=== PATIENT | male | born 1960 | race Caucasian/White ===

== ENCOUNTER 2017-07-05 21:14 | Inpatient (IN) | payer MEDICARE, OTHER ==
[~2017-07-05] VITALS: Ht 177.8 cm; Wt 95.6 kg
[2017-07-05] VITALS (8 sets, daily range): BP systolic 125–211; BP diastolic 76–116; PULSE 88–120; RESP 20–22; TEMP 98.4; O2SAT 98–100
[2017-07-05] MEDS ORDERED: ROCURONIUM INJ 50 MG/5 ML VIAL IV ONE (21:30)
[2017-07-05] MEDS ORDERED: ETOMIDATE 20 MG/10 ML VIAL IV PUSH ONE (21:30)
[2017-07-05] MEDS: PROPOFOL 1000 MG/100 ML INJ 100 ML IV PRN (21:40)
[2017-07-05 21:44] LABS: AUTOMATED NEUTROPHIL # 12.2 TH/MM3 (1.8-7.7); BASOPHIL # 0.3 TH/MM3 (0-0.2); BASOPHIL % 1.1 % (0.0-2.0); EOSINOPHIL % 8.6 % (0.0-4.0); HEMATOCRIT 47.6 % (39.0-51.0); HEMOGLOBIN 16.5 GM/DL (13.0-17.0); LYMPH % 31.2 % (9.0-44.0); LYMPHOCYTE # 7.2 TH/MM3 (1.0-4.8); MEAN CELL VOLUME 88.1 FL (80.0-100.0); MEAN CORPUSCULAR HEMOGLOBIN 30.5 PG (27.0-34.0); MEAN CORPUSCULAR HGB CONC 34.6 % (32.0-36.0); MEAN PLATELET VOLUME 9.9 FL (7.0-11.0); MONOCYTE # 1.4 TH/MM3 (0-0.9); NEUT % 53.1 % (16.0-70.0); PLATELET COUNT 260 TH/MM3 (150-450); RED BLOOD COUNT 5.41 MIL/MM3 (4.50-5.90); RED CELL DISTRIBUTION WIDTH 14.5 % (11.6-17.2); WHITE BLOOD COUNT 23.1 TH/MM3 (4.0-11.0)
[2017-07-05 21:54] LABS: CALCIUM 8.5 MG/DL (8.5-10.1)
[2017-07-05 21:55] LABS: BICARBONATE 27.2 MEQ/L (21.0-32.0)
[2017-07-05 21:56] LABS: INTERNATIONAL NORMALIZED RATIO 1.1 RATIO; PROTHROMBIN TIME - PATIENT 11.3 SEC (9.8-11.6)
--- NOTE | 2017-07-05 21:56 | PD ---
HPI Chief Complaint: Cardiac arrest Time Seen by Provider: 21:21 Travel History International Travel<30 days: No Contact w/Intl Traveler<30days: No History of Present Illness HPI 56yo M with PMH of CHF, CAD s/p stent was brought in by [facility] in agonal breathing. Pt has been feeling sob for a few hours when [facility] arrived. Said he was in agonal breathing and then lose pulses and was in vfib so was defibrillated once and given 1 dose of epinephrine. Pt has ROSC right away. Pt was brought in with BVM and was opening his eyes but in respiratory distress. Pt emergently intubated in the ED. Pt is able to follow commands and moves all extremities and nods his head to respond. Unable to obtain further history. [facility] Social History Tobacco Use: No Allergies-Medications (Allergen,Severity, Reaction): Coded Allergies: No Allergy Information Available (Unverified , 07/05/17) Unable to obtain due to clinical condition Reported Meds & Prescriptions Reported Meds & Active Scripts Active Reported Sertraline (Sertraline HCl) 100 Mg Tab 100 Mg PO DAILY Calcitriol 0.5 Mcg Cap 0.5 Mcg PO DAILY Magox 400 (Magnesium Oxide) 400 Mg Tablet Clonidine (Clonidine HCl) 0.1 Mg Tab 0.1 Mg PO BID Isosorbide Mononitrate ER (Isosorbide Mononitrate) 60 Mg Tab 60 Mg PO DAILY Fenofibrate 145 Mg Tab 145 Mg PO DAILY Risperidone 2 Mg Tab 2 Mg PO Q12HR Metformin ER (Metformin HCl) 1,000 Mg Mai 1,000 Mg PO DAILY With evening meal Amitriptyline (Amitriptyline HCl) 10 Mg Tab 10 Mg PO HS Divalproex DR (Divalproex Sodium) 500 Mg Tabdr 500 Mg PO BID Lisinopril 20 Mg Tab 20 Mg PO DAILY Aspirin 81 Mg Chew 81 Mg CHEW DAILY Aripiprazole 15 Mg Tab 15 Mg PO DAILY Metoprolol Tartrate 50 Mg Tab 50 Mg PO BID Ibuprofen 800 Mg Tab 800 Mg PO Q8H PRN Xanax (Alprazolam) 1 Mg Tab 1 Mg PO Q8H PRN Review of Systems ROS Limitations: Clinical Condition Physical Exam Narrative GENERAL: 56yo M in severe distress. SKIN: Focused skin assessment warm/dry. HEAD: Atraumatic. Normocephalic. EYES: Pupils equal and round at 3mm bilaterally. ENT: No nasal bleeding or discharge. Mucous membranes pink and moist. NECK: Trachea midline. No JVD. CARDIOVASCULAR: Regular rate and rhythm. No murmur appreciated. RESPIRATORY: +accessory muscle use. Coarse breath sounds bilaterally. GASTROINTESTINAL: Abdomen soft, non-tender, nondistended. MUSCULOSKELETAL: No obvious deformities. No clubbing. No cyanosis. +Bilateral lower ext edema. NEUROLOGICAL: Sedated but initially able to follow commands and open his eyes. Data Data Last Documented VS Vital Signs Date Time Temp Pulse Resp B/P (MAP) Pulse Ox O2 Delivery O2 Flow Rate FiO2 07/05/17:15 99 75 07/05/17 22:15 119 22 172/96 (121) Ventilator 07/05/17 22:00 98.4 Orders Orders Complete Blood Count With Diff (07/05/17 21:21) Basic Metabolic Panel (Bmp) (07/05/17 21:21) Prothrombin Time / Inr (Pt) (07/05/17 21:21) Act Partial Throm Time (Ptt) (07/05/17:) Troponin I (07/05/17 21:21) Chest, Single Ap (07/05/17 ) Ng Gastric Tube Insert/Monitor (07/05/17 21:21) Urinary Catheter Management SOLOMON.Q8H (07/05/17 21:21) Propofol 1000 Mg/100 Ml Inj (Diprivan 10 (07/05/17 21:30) Etomidate Inj (Amidate Inj) (07/05/17 21:30) Rocuronium Inj (Zemuron Inj) (07/05/17 21:30) B-Type Natriuretic Peptide (07/05/17 21:24) Restraints Non-Violent SOLOMON.Q3H (07/05/17 21:30) Electrocardiogram (07/05/17 21:13) Arterial Blood Gas (Abg) (07/05/17 22:00) Furosemide Inj (Lasix Inj) (07/05/17 22:30) Methylprednisolone So Succ Inj (Solumedr (07/05/17 22:30) Albuterol-Ipratropium Neb (Duoneb Neb) (07/05/17 22:30) Nitroglycerin 2% Oint (Nitroglycerin 2% (07/05/17 22:30) Admit Order (Ed Use Only) (07/05/17 22:20) Labs Laboratory Tests Test 07/05/17 21:35 07/05/17 21:55 White Blood Count 23.1 TH/MM3 Red Blood Count 5.41 MIL/MM3 Hemoglobin 16.5 GM/DL Hematocrit 47.6 % Mean Corpuscular Volume 88.1 FL Mean Corpuscular Hemoglobin 30.5 PG Mean Corpuscular Hemoglobin Concent 34.6 % Red Cell Distribution Width 14.5 % Platelet Count 260 TH/MM3 Mean Platelet Volume 9.9 FL Neutrophils (%) (Auto) 53.1 % Lymphocytes (%) (Auto) 31.2 % Monocytes (%) (Auto) 6.0 % Eosinophils (%) (Auto) 8.6 % Basophils (%) (Auto) 1.1 % Neutrophils # (Auto) 12.2 TH/MM3 Lymphocytes # (Auto) 7.2 TH/MM3 Monocytes # (Auto) 1.4 TH/MM3 Eosinophils # (Auto) 2.0 TH/MM3 Basophils # (Auto) 0.3 TH/MM3 CBC Comment AUTO DIFF Differential Total Cells Counted 100 Neutrophils % (Manual) 46 % Band Neutrophils % 3 % Lymphocytes % 35 % Monocytes % 7 % Eosinophils % 9 % Neutrophils # (Manual) 11.3 TH/MM3 Differential Comment FINAL DIFF MANUAL Platelet Estimate NORMAL Platelet Morphology Comment NORMAL Red Cell Morphology Comment NORMAL Prothrombin Time 11.3 SEC Prothromb Time International Ratio 1.1 RATIO Activated Partial Thromboplast Time 28.3 SEC Blood Urea Nitrogen 14 MG/DL Creatinine 1.40 MG/DL Random Glucose 242 MG/DL Calcium Level 8.5 MG/DL Sodium Level 140 MEQ/L Potassium Level 4.0 MEQ/L Chloride Level 101 MEQ/L Carbon Dioxide Level 27.2 MEQ/L Anion Gap 12 MEQ/L Estimat Glomerular Filtration Rate 52 ML/MIN Troponin I 0.03 NG/ML B-Type Natriuretic Peptide 675 PG/ML Blood Gas Puncture Site RT RADIAL Blood Gas Patient Temperature 98.6 Blood Gas HCO3 28 mmol/L Blood Gas Base Excess 1.6 mmol/L Blood Gas Oxygen Saturation 93 % Arterial Blood pH 7.25 Arterial Blood Partial Pressure CO2 67 mmHG Arterial Blood Partial Pressure O2 210 mmHG Arterial Blood Oxygen Content 19.9 Vol % Arterial Blood Carboxyhemoglobin 4.8 % Arterial Blood Methemoglobin 1.3 % Blood Gas Hemoglobin 14.9 G/DL Oxygen Delivery Device VENTILATOR Blood Gas Ventilator Setting AC14/600/5PEEP Blood Gas Inspired Oxygen 100 % MDM Medical Decision Making Medical Screen Exam Complete: Yes Emergency Medical Condition: Yes Interpretation(s) EKG: Sinus tachycardia at 133bpm. LBBB. No prior to compare. Differential Diagnosis MS vs. CHF exacerbation vs. COPD exacerbation vs. pneumonia vs. PE Narrative Course 56yo M in respiratory distress was found to be in vfib arrest. ROSC obtain after 1 defibrillation and epinephrine. Pt is in respiratory distress upon arrival and emergently intubated. Pt is very hypertensive with BP of 211/116. Mildly tachycardic with HR in the low 110s. Pt is following command and currently sedated with propofol. Labs reviewed, leukocytosis at 23.1. Empirically cover with vancomycin and zosyn. BNP elevated at 675. ABG showed respiratory acidosis with PCO2 of 67. RR rate change from 14 to 18. FiO2 decrease from 100% to 75%. Pt with history of CHF, lower extremity edema and coarse breath sounds, will give nitropaste and lasix. CXR showed ET tube in good position. NG in stomach. Mild perihilar airspace disease. Pt's aunt arrived and said they are visiting from [place] and drove down to [place] a week ago. Will do CT angio to r/o PE. Discussed with Dr. Barron and accepted to his service. He wants patient transfer to the [facility]. CT angio showed no PE. Bilateral pulmonary consolidation and effusion with adenopathy. Pt already covered with antibiotics. Critical Care Narrative Aggregate critical care time was 50 minutes. Time to perform other separately billable procedures was not included in the critical care time. My time did not include minutes spent treating any other patients simultaneously or on activities that did not directly contribute to the patient's treatment. The services I provided to this patient were to treat and/or prevent clinically significant deterioration that could result in: Respiratory distress and . I provided critical care services requiring my management, as noted below: Chart data review, documentation time, medication orders and management, vital sign assessments/reviewing monitor data, ordering and reviewing lab tests, ordering and interpreting/reviewing x-rays and diagnostic studies, care of the patient and discussion of the patient with the admitting physicians. Procedures Procedure Narrative The patient was put in optimal position for the procedure. Rapid sequence intubation was initiated by me using 30 milligrams of etomidate IV and 50 milligrams of rocuronium IV. The patient was intubated with a 8.0 cuffed endotracheal tube. Tube placement was confirmed by visualization of the tube and balloon passing through the cords, capnometry and subsequent chest x-ray. Breath sounds were equal and well aerated bilaterally postintubation. No breath sounds over stomach. Patient tolerated procedure well. Diagnosis Primary Impression: Acute respiratory failure Qualified Codes: J96.00 - Acute respiratory failure, unspecified whether with hypoxia or hypercapnia Admitting Information Admitting Physician Requests: it Cecilia Guzman DO Jul 05, 2017 21:56
[2017-07-05 21:58] LABS: CREATININE 1.4 MG/DL (0.60-1.30)
[2017-07-05 22:02] LABS: TROPONIN I 0.03 NG/ML (0.02-0.05)
[2017-07-05 22:10] LABS: BANDS 3 % (0-6); LYMPHOCYTES 35 % (9-44); MONOCYTES 7 % (0-8); NEUTROPHIL # MANUAL DIFF 11.3 TH/MM3 (1.8-7.7); POLYS (SEG NEUTROPHILS) 46 % (16-70)
--- NOTE | 2017-07-05 22:12 | RADRPT ---
EXAM DATE/TIME: 07/05/2017 21:26 [facility] COMPARISON: No previous studies available for comparison. INDICATIONS : Post intubation. MEDICAL HISTORY : Cardiovascular disease. SURGICAL HISTORY : CABG. Pacemaker. ENCOUNTER: Initial ACUITY: 1 day PAIN SCORE: Non-responsive. LOCATION: Bilateral chest FINDINGS: A single view of the chest demonstrates endotracheal tube in good position. NG tip in stomach. Postop median sternotomy. Pacer leads overlie right atrium and right ventricle. Mild perihilar airspace dis ease. No significant effusion. No pneumothorax. CONCLUSION: 1. Endotracheal tube in good position. NG coiled in stomach. Mild perihilar airspace disease. James Parsons MD on July 05, 2017 at 22:08 Board Certified Radiologist. This report was verified electronically.
[2017-07-05] MEDS ORDERED: methylPREDNISolone SOD SUCC 125 MG/2 ML VIAL IV PUSH ONE (22:30)
[2017-07-05] MEDS ORDERED: FUROSEMIDE 40 MG/4 ML VIAL IVP ONE (22:30)
[2017-07-05] MEDS ORDERED: PIPERACIL-TAZO 3.375 GM PREMIX 50 ML IV ONE (22:30)
[2017-07-05] MEDS ORDERED: NITROGLYCERIN 2% OINT 1 GM PACKET TOPICAL ONE (22:30)
[2017-07-05] MEDS ORDERED: VANCOMYCIN INJ 1,600 MG in SODIUM CHLORID 0.9% 500 ML INJ 500 ML IV ONE (22:30)
[2017-07-05] MEDS: RESP: ALBUTEROL 2.5 MG/IPRATROPIUM 0.5 MG NEB (SCH) INH (22:33)
[2017-07-05] MEDS ORDERED: ARIP1TAB13 PO (22:33)
[2017-07-05] MEDS ORDERED: ISOS60TA PO (22:33)
[2017-07-05] MEDS ORDERED: IBUP1TAB7 PO (22:33)
[2017-07-05] MEDS ORDERED: CALC0.5C PO (22:33)
[2017-07-05] MEDS ORDERED: SERT-129 PO (22:33)
[2017-07-05] MEDS ORDERED: XANA1TAB2 PO (22:33)
[2017-07-05] MEDS ORDERED: DIVA500T PO (22:33)
[2017-07-05] MEDS ORDERED: METO50TA PO (22:33)
[2017-07-05] MEDS ORDERED: FENO145T2 PO (22:33)
[2017-07-05] MEDS ORDERED: MAGO400T2 (22:33)
[2017-07-05] MEDS ORDERED: ASPI-516 CHEW (22:33)
[2017-07-05] MEDS ORDERED: METF-382 PO (22:33)
[2017-07-05] MEDS ORDERED: CLON0.1T PO (22:33)
[2017-07-05] MEDS ORDERED: LISI-515 PO (22:33)
[2017-07-05] MEDS ORDERED: AMIT10TA6 PO (22:33)
[2017-07-05] MEDS ORDERED: RISP2TAB2 PO (22:33)
[2017-07-05] MEDS ORDERED: IOHEXOL 350 MG/ML 10 ML VIAL (for RAD DIAG) IVCONTRAST ONE (23:38)
--- NOTE | 2017-07-05 23:45 | RADRPT ---
EXAM DATE/TIME: 07/05/2017 23:15 [facility] COMPARISON: No previous studies available for comparison. INDICATIONS : Evaluate for embolism. Respiratory distress. IV CONTRAST: 75 cc Omnipaque 350 (iohexol) IV RADIATION DOSE: 21.42 CTDIvol (mGy) MEDICAL HISTORY : Congestive hearrt failure. Chronic obstructive pulmonary disease. SURGICAL HISTORY : CABG ENCOUNTER: Initial ACUITY: 1 day PAIN SCALE: Non-responsive LOCATION: chest TECHNIQUE: Volumetric scanning of the chest was performed using a pulmonary embolism protocol MIP images were re constructed. Using automated exposure control and adjustment of the mA and/or kV according to patien t size, radiation dose was kept as low as reasonably achievable to obtain optimal diagnostic quality images. DICOM format image data is available electronically for review and comparison. Follow-up recommendations for detected pulmonary nodules are based at a minimum on nodule size and pa tient risk factors according to Fleischner Society Guidelines. FINDINGS: There is dense consolidation in the lower lobes with moderate bilateral pleural effusions. There is a lso consolidation in the upper lobes posteriorly along the oblique fissure. Endotracheal tube and ent michelle tubes are identified. A cyst is suspected at the midpole of the left kidney and there is diverti culosis of the transverse colon. The patient has had previous CABG. 111 cm right paratracheal lymph n ode, 9.2 mm short axis prevascular node, subcarinal adenopathy up to 2.7 cm in short axis dimension, and bilateral hilar adenopathy up to 2.1 cm on the right, and 1.3 cm on the left. No obvious pulmonar y emboli. Degenerative changes of the spine are noted. CONCLUSION: 1. No evidence for pulmonary embolism. 2. Bilateral pulmonary consolidation and effusions with adenopathy. 3. Diverticulosis. 4. Left renal cyst. Jai Rosales MD on July 05, 2017 at 23:40 Board Certified Radiologist. This report was verified electronically.
[2017-07-06] VITALS (14 sets, daily range): BP systolic 118–188; BP diastolic 71–103; PULSE 74–111; RESP 16–22; TEMP 97.6–99.1; O2SAT 92–100
[2017-07-06] MEDS: SODIUM CHLOR 0.9% 1000 ML INJ 1,000 ML IV SCH ×3 (01:11→22:53)
[2017-07-06] MEDS: PROPOFOL 1000 MG/100 ML INJ 100 ML IV PRN (01:13)
[2017-07-06] MEDS ORDERED: SENNOSIDES 8.6 MG TAB PO PRN (01:15)
[2017-07-06] MEDS ORDERED: SODIUM CHLORIDE 0.9% FLUSH 10 ML FLUSH IV FLUSH PRN (01:15)
[2017-07-06] MEDS ORDERED: Vancomycin Consult Pharmacy 1 EA OTHER SCH (01:15)
[2017-07-06] MEDS ORDERED: ACETAMINOPHEN 325 MG TAB PO PRN (01:15)
[2017-07-06] MEDS ORDERED: BISACODYL 10 MG SUPP RECTAL PRN (01:15)
[2017-07-06] MEDS ORDERED: LACTULOSE SYRUP 20 GM/30 ML CUP PO PRN (01:15)
[2017-07-06] MEDS ORDERED: MIDAZOLAM HCL 2 MG/2 ML VIAL IV PUSH PRN (01:15)
[2017-07-06] MEDS ORDERED: PROPOFOL 1000 MG/100 ML INJ 100 ML IV PRN (01:15)
[2017-07-06] MEDS ORDERED: MISCELLANEOUS NURSING INFORMATION XX SCH (01:15)
[2017-07-06] MEDS ORDERED: RESP: ALBUTEROL 2.5 MG/IPRATROPIUM 0.5 MG NEB (PRN) INH (01:15)
[2017-07-06] MEDS ORDERED: MAGNESIUM HYDROXIDE SUSP 30 ML CUP PO PRN (01:15)
[2017-07-06] MEDS ORDERED: CHLORHEXIDINE GLUCONATE 2 % 1 PACK (2 CLOTHS) TOP PRN (01:15)
[2017-07-06] MEDS ORDERED: DEXTROSE 50% IN WATER 50 ML VIAL(D50) IV PUSH PRN (01:30)
[2017-07-06] MEDS ORDERED: GLUCAGON 1 MG/ML VIAL OTHER PRN (01:30)
[2017-07-06] MEDS: CHLORHEXIDINE GLUCONATE 2 % 1 PACK (2 CLOTHS) TOP SCH (02:24)
[2017-07-06 02:46] LABS: AUTOMATED NEUTROPHIL # 12.8 TH/MM3 (1.8-7.7); BASOPHIL # 0.1 TH/MM3 (0-0.2); BASOPHIL % 0.4 % (0.0-2.0); EOSINOPHIL % 0.3 % (0.0-4.0); HEMATOCRIT 41.3 % (39.0-51.0); HEMOGLOBIN 14.1 GM/DL (13.0-17.0); LYMPH % 3.5 % (9.0-44.0); LYMPHOCYTE # 0.5 TH/MM3 (1.0-4.8); MEAN CELL VOLUME 87.1 FL (80.0-100.0); MEAN CORPUSCULAR HEMOGLOBIN 29.8 PG (27.0-34.0); MEAN CORPUSCULAR HGB CONC 34.2 % (32.0-36.0); MEAN PLATELET VOLUME 10.3 FL (7.0-11.0); MONO % 2.8 % (0.0-8.0); MONOCYTE # 0.4 TH/MM3 (0-0.9); PLATELET COUNT 213 TH/MM3 (150-450); RED BLOOD COUNT 4.74 MIL/MM3 (4.50-5.90); RED CELL DISTRIBUTION WIDTH 14.7 % (11.6-17.2); WHITE BLOOD COUNT 13.8 TH/MM3 (4.0-11.0)
[2017-07-06] MEDS: AZITHROMYCIN INJ 500 MG in SODIUM CHLOR 0.9% 250 ML INJ 250 ML IV SCH (02:51)
[2017-07-06 02:53] LABS: ALBUMIN 3.2 GM/DL (3.4-5.0); ALT (GPT) 21 U/L (12-78); AST (GOT) 32 U/L (15-37); BICARBONATE 28.6 MEQ/L (21.0-32.0); BLOOD UREA NITROGEN 16 MG/DL (7-18); CALCIUM 8.2 MG/DL (8.5-10.1); CHLORIDE 104 MEQ/L (98-107); CREATININE 1.09 MG/DL (0.60-1.30); GLOMERULAR FILTRATION RATE 70 ML/MIN (>89); GLUCOSE,RANDOM 262 MG/DL (74-106); SODIUM (NA) 139 MEQ/L (136-145)
[2017-07-06 02:56] LABS: ALKALINE PHOSPHATASE 55 U/L (45-117); TOTAL BILIRUBIN ADULT 0.4 MG/DL (0.2-1.0); TOTAL PROTEIN 7.3 GM/DL (6.4-8.2); TROPONIN I 0.57 NG/ML (0.02-0.05)
[2017-07-06] MEDS: RESP: ALBUTEROL 2.5 MG/IPRATROPIUM 0.5 MG NEB (SCH) INH ×4 (04:38→20:39)
[2017-07-06] MEDS ORDERED: HEPARIN SODIUM - IV 10,000 UNITS/10 ML VIAL IV PUSH ONE (05:00)
[2017-07-06] MEDS: PIPERACIL-TAZO 4.5 GM PREMIX 100 ML IV SCH ×4 (05:00→22:52)
--- NOTE | 2017-07-06 05:00 | HHI.HP ---
HPI Service Critical Care Medicine Primary Care Physician No Primary Care Physician Admission Diagnosis Post cardiac arrest Diagnosis: Travel History International Travel<30 Days: No Contact w/Intl Traveler <30 Da: No Traveled to Known Affected Are: No History of Present Illness 56-year-old gentleman from [place] with past medical history of coronary artery disease status post stent placement 2 weeks ago, CHF with EF per family 25%, diabetes mellitus, seizure disorder, depressions, diabetes mellitus was brought in by [facility] in agonal breathing. The patient has been feeling short of breath a few hours prior to event. Per chart documentation when the emergency response arrived they found the patient in agonal breathing and then lost pulses. The rhythm was found to be ventricular fibrillation and he was defibrillated once and given 1 dose of epinephrine. Patient had ROSC right away. He was brought to emergency department at [place], was opening his eyes but in respiratory distress. He was emergently intubated by ED attending for an airway protection. Off sedation he is is able to follow commands and moves all extremities and nods his head to respond. Review of Systems ROS Unable to obtain patient sedated and intubated Past Family Social History Allergies: Coded Allergies: No Allergy Information Available (Unverified , 07/05/17) Unable to obtain due to clinical condition Past Medical History Coronary artery disease status post stent placement 2 weeks ago CHF - EF 25% and AICD in place Diabetes mellitus Seizure disorder Dyslipidemia Depressions Past Surgical History Coronary angiography with stent placement 2 weeks ago AICD placement Reported Medications Reported Meds & Active Scripts Active Reported Sertraline (Sertraline HCl) 100 Mg Tab 100 Mg PO DAILY Calcitriol 0.5 Mcg Cap 0.5 Mcg PO DAILY Magox 400 (Magnesium Oxide) 400 Mg Tablet Clonidine (Clonidine HCl) 0.1 Mg Tab 0.1 Mg PO BID Isosorbide Mononitrate ER (Isosorbide Mononitrate) 60 Mg Tab 60 Mg PO DAILY Fenofibrate 145 Mg Tab 145 Mg PO DAILY Risperidone 2 Mg Tab 2 Mg PO Q12HR Metformin ER (Metformin HCl) 1,000 Mg Mai 1,000 Mg PO DAILY With evening meal Amitriptyline (Amitriptyline HCl) 10 Mg Tab 10 Mg PO HS Divalproex DR (Divalproex Sodium) 500 Mg Tabdr 500 Mg PO BID Lisinopril 20 Mg Tab 20 Mg PO DAILY Aspirin 81 Mg Chew 81 Mg CHEW DAILY Aripiprazole 15 Mg Tab 15 Mg PO DAILY Metoprolol Tartrate 50 Mg Tab 50 Mg PO BID Ibuprofen 800 Mg Tab 800 Mg PO Q8H PRN Xanax (Alprazolam) 1 Mg Tab 1 Mg PO Q8H PRN Active Ordered Medications Current Medications Medications (Trade) Dose Ordered Sig/Son Route PRN Reason Start Time Stop Time Status Last Admin Dose Admin Sodium Chloride 1,000 ml @ 84 mls/hr [id number] IV 07/06/17 01:11 07/06/17 01:11 Sodium Chloride (NS Flush) 2 ml UNSCH PRN IV FLUSH FLUSH AFTER USING IV ACCESS 07/06/17 01:15 Sodium Chloride (NS Flush) 2 ml BID IV FLUSH 07/06/17 09:00 Acetaminophen (Tylenol) 650 mg Q6H PRN PO PAIN 1-5 AND/OR FEVER >101F 07/06/17 01:15 Morphine Sulfate (Morphine Inj) 2 mg Q2H PRN IV PUSH PAIN SCALE 6 TO 10 07/06/17 01:15 Famotidine (Pepcid Inj) 20 mg Q12HR IV PUSH 07/06/17 09:00 Midazolam HCl (Versed Inj) 2 mg Q1H PRN IV PUSH SEDATION 07/06/17 01:15 Artificial Tears (Tears Naturale Opth Soln) 1 drop TID EACH EYE 07/06/17 09:00 Ondansetron HCl (Zofran Inj) 4 mg Q6H PRN IV PUSH NAUSEA OR VOMITING 07/06/17 01:15 Albuterol/ Ipratropium (Duoneb Neb) 1 ampule Q6HR NEB INH 07/06/17 04:00 07/06/17 04:38 Albuterol/ Ipratropium (Duoneb Neb) 1 ampule Q2HR NEB PRN INH WHEEZING 07/06/17 01:15 Heparin Sodium (Porcine) (Heparin Inj) 5,000 units Q8H SQ 07/06/17 06:00 Miscellaneous Information 1 [id number] XX 07/06/17 01:15 07/06/17 01:15 Chlorhexidine Gluconate (Chlorhexidine 2% Cloth) 3 pack Taper DAILY@04 TOP 07/06/17 04:00 07/02/18 03:59 07/06/17 02:24 Chlorhexidine Gluconate (Chlorhexidine 2% Cloth) 3 pack UNSCH PRN TOP HYGIENIC CARE 07/06/17 01:15 Senna/Docusate Sodium (Tiffany-Colace) 1 tab BID PO 07/06/17 09:00 Magnesium Hydroxide (Milk Of Magnesia Liq) 30 ml Q12H PRN PO Mild constipation 07/06/17 01:15 Sennosides (Senokot) 17.2 mg Q12H PRN PO Moderate constipation 07/06/17 01:15 Bisacodyl (Dulcolax Supp) 10 mg DAILY PRN RECTAL SEVERE CONSITIPATION 07/06/17 01:15 Lactulose (Lactulose Liq) 30 ml DAILY PRN PO SEVERE CONSITIPATION 07/06/17 01:15 Chlorhexidine Gluconate (Peridex 0.12% Liq) 15 ml BID@08,20 MT 07/06/17 08:00 Propofol 100 ml @ 2.799 mls/ hr TITRATE PRN IV SEDATION 07/06/17 01:15 Piperacillin Sod/ Tazobactam Sod 100 ml @ 200 mls/hr Q6H IV 07/06/17 05:00 Azithromycin 500 mg/Sodium Chloride 250 ml @ 250 mls/hr Q24H IV 07/06/17 01:15 07/06/17 02:51 Pharmacy Profile Note 0 ml @ 0 mls/hr UNSCH OTHER 07/06/17 01:15 Methylprednisolone Sodium Succinate (SoluMEDROL INJ) 40 mg Q12H IV PUSH 07/06/17 10:00 Dextrose (D50w (Vial) Inj) 50 ml UNSCH PRN IV PUSH HYPOGLYCEMIA-SEE COMMENTS 07/06/17 01:30 Glucagon (Glucagon Inj) 1 mg UNSCH PRN OTHER HYPOGLYCEMIA-SEE COMMENTS 07/06/17 01:30 Insulin Aspart (NovoLOG SUPPLEMENTAL SCALE) 1 ACHS SLIDING SCALE SQ 07/06/17 08:00 Family History Unable to obtain Social History Unable to obtain Physical Exam Vital Signs Vital Signs Date Time Temp Pulse Resp B/P (MAP) Pulse Ox O2 Delivery O2 Flow Rate FiO2 07/06/17 04:30 98 50 07/06/17 01:29 75 07/06/17 01:28 07/06/17 00:56 97.6 84 18 156/71 (99) 100 07/05/17 23:45 88 20 132/78 (96) 98 Ventilator 07/05/17 23:40 99 75 07/05/17 23:05 100 100 07/05/17 23:00 98 20 125/76 (92) 98 Ventilator 07/05/17 22:30 112 20 172/88 (116) 99 Ventilator 07/05/17 22:15 99 75 07/05/17 22:15 119 22 172/96 (121) Ventilator 07/05/17 22:00 98.4 120 20 211/116 (147) 99 Ventilator 07/05/17 21:25 100 100 Physical Exam GENERAL: Well-nourished, well-developed patient, sedated and intubated. SKIN: Warm and dry. HEAD: Normocephalic. EYES: No scleral icterus. No injection or drainage. NECK: Supple, trachea midline. No JVD or lymphadenopathy. CARDIOVASCULAR: Regular rate and rhythm without murmurs, gallops, or rubs. RESPIRATORY: Breath sounds equal bilaterally. No accessory muscle use. GASTROINTESTINAL: Abdomen soft, non-tender, nondistended. MUSCULOSKELETAL: No cyanosis, or edema. BACK: Nontender without obvious deformity. NEURO EXAM: Mental Status: The patient is sedated and intubated, follows commands off sedation in all 4 extremities Laboratory Laboratory Tests Test 07/05/17 21:35 07/05/17 21:55 07/06/17 01:00 07/06/17 01:49 White Blood Count 23.1 Red Blood Count 5.41 Hemoglobin 16.5 Hematocrit 47.6 Mean Corpuscular Volume 88.1 Mean Corpuscular Hemoglobin 30.5 Mean Corpuscular Hemoglobin Concent 34.6 Red Cell Distribution Width 14.5 Platelet Count 260 Mean Platelet Volume 9.9 Neutrophils (%) (Auto) 53.1 Lymphocytes (%) (Auto) 31.2 Monocytes (%) (Auto) 6.0 Eosinophils (%) (Auto) 8.6 Basophils (%) (Auto) 1.1 Neutrophils # (Auto) 12.2 Lymphocytes # (Auto) 7.2 Monocytes # (Auto) 1.4 Eosinophils # (Auto) 2.0 Basophils # (Auto) 0.3 CBC Comment AUTO DIFF Differential Total Cells Counted 100 Neutrophils % (Manual) 46 Band Neutrophils % 3 Lymphocytes % 35 Monocytes % 7 Eosinophils % 9 Neutrophils # (Manual) 11.3 Differential Comment FINAL DIFF MANUAL Platelet Estimate NORMAL Platelet Morphology Comment NORMAL Red Cell Morphology Comment NORMAL Prothrombin Time 11.3 Prothromb Time International Ratio 1.1 Activated Partial Thromboplast Time 28.3 Blood Urea Nitrogen 14 Creatinine 1.40 Random Glucose 242 Calcium Level 8.5 Sodium Level 140 Potassium Level 4.0 Chloride Level 101 Carbon Dioxide Level 27.2 Anion Gap 12 Estimat Glomerular Filtration Rate 52 Troponin I 0.03 B-Type Natriuretic Peptide 675 Blood Gas Puncture Site RT RADIAL RT RADIAL Blood Gas Patient Temperature 98.6 98.6 Blood Gas HCO3 28 27 Blood Gas Base Excess 1.6 2.4 Blood Gas Oxygen Saturation 93 95 Arterial Blood pH 7.25 7.40 Arterial Blood Partial Pressure CO2 67 44 Arterial Blood Partial Pressure O2 210 129 Arterial Blood Oxygen Content 19.9 18.8 Arterial Blood Carboxyhemoglobin 4.8 2.1 Arterial Blood Methemoglobin 1.3 1.6 Blood Gas Hemoglobin 14.9 13.9 Oxygen Delivery Device VENTILATOR VENT Blood Gas Ventilator Setting AC14/600/5PEEP SEE COMMENT Blood Gas Inspired Oxygen 100 75 Nasal Screen MRSA (PCR) MRSA NOT DETECTED Test 07/06/17 02:29 White Blood Count 13.8 Red Blood Count 4.74 Hemoglobin 14.1 Hematocrit 41.3 Mean Corpuscular Volume 87.1 Mean Corpuscular Hemoglobin 29.8 Mean Corpuscular Hemoglobin Concent 34.2 Red Cell Distribution Width 14.7 Platelet Count 213 Mean Platelet Volume 10.3 Neutrophils (%) (Auto) 93.0 Lymphocytes (%) (Auto) 3.5 Monocytes (%) (Auto) 2.8 Eosinophils (%) (Auto) 0.3 Basophils (%) (Auto) 0.4 Neutrophils # (Auto) 12.8 Lymphocytes # (Auto) 0.5 Monocytes # (Auto) 0.4 Eosinophils # (Auto) 0.0 Basophils # (Auto) 0.1 CBC Comment DIFF FINAL Differential Comment Blood Urea Nitrogen 16 Creatinine 1.09 Random Glucose 262 Total Protein 7.3 Albumin 3.2 Calcium Level 8.2 Alkaline Phosphatase 55 Aspartate Amino Transf (AST/SGOT) 32 Alanine Aminotransferase (ALT/SGPT) 21 Total Bilirubin 0.4 Sodium Level 139 Potassium Level 4.1 Chloride Level 104 Carbon Dioxide Level 28.6 Anion Gap 6 Estimat Glomerular Filtration Rate 70 Lactic Acid Level 1.4 Troponin I 0.57 Date/Time Source Procedure Growth Status 07/05/17 22:43 Blood Peripheral Aerobic Blood Culture Pending Received 07/05/17 22:43 Blood Peripheral Anaerobic Blood Culture Pending Received Result Diagram: 07/06/1722807/06/17228 Septic Shock Reassessment Septic shock perfusion: reassessment completed Caprini VTE Risk Assessment Caprini VTE Risk Assessment: Mod/High Risk (score >= 2) Caprini Risk Assessment Model Point Value = 1 Point Value = 2 Point Value = 3 Point Value = 5 Age 41-60 Minor surgery BMI > 25 kg/m2 Swollen legs Varicose veins or History of unexplained or recurrent spontaneous Oral contraceptives or hormone replacement Sepsis (< 1 month) Serious lung disease, including pneumonia (< 1 month) Abnormal pulmonary function Acute myocardial infarction Congestive heart failure (< 1 month) History of inflammatory bowel disease Medical patient at bed rest Age 61-74 Arthroscopic surgery Major open surgery (> 45 min) Laparoscopic surgery (> 45 min) Malignancy Confined to bed (> 72 hours) Immobilizing plaster cast Central venous access Age >= 75 History of VTE Family history of VTE Factor V Leiden Prothrombin [id number] Lupus anticoagulant Anticardiolipin antibodies Elevated serum homocysteine Heparin-induced thrombocytopenia Other congenital or acquired thrombophilia Stroke (< 1 month) Elective arthroplasty Hip, pelvis, or leg fracture Acute spinal cord injury (< 1 month) Prophylaxis Regimen Total Risk Factor Score Risk Level Prophylaxis Regimen 0-1 Low Early ambulation 2 Moderate Order ONE of the following: *Sequential Compression Device (SCD) *Heparin 5000 units SQ BID 3-4 Higher Order ONE of the following medications: *Heparin 5000 units SQ TID *Enoxaparin/Lovenox 40 mg SQ daily (WT < 150 kg, CrCl > 30 mL/min) *Enoxaparin/Lovenox 30 mg SQ daily (WT < 150 kg, CrCl > 10-29 mL/min) *Enoxaparin/Lovenox 30 mg SQ BID (WT < 150 kg, CrCl > 30 mL/min) AND/OR *Sequential Compression Device (SCD) 5 or more Highest Order ONE of the following medications: *Heparin 5000 units SQ TID (Preferred with Epidurals) *Enoxaparin/Lovenox 40 mg SQ daily (WT < 150 kg, CrCl > 30 mL/min) *Enoxaparin/Lovenox 30 mg SQ daily (WT < 150 kg, CrCl > 10-29 mL/min) *Enoxaparin/Lovenox 30 mg SQ BID (WT < 150 kg, CrCl > 30 mL/min) AND *Sequential Compression Device (SCD) Assessment and Plan Assessment and Plan Respiratory failure - Status post V. fib arrest - Intubated for airway protection - CTA negative for PE - Bilateral infiltrates - Covered with broad-spectrum antibiotics - Follow-up cultures - DuoNeb scheduled and when necessary - Vent bundle - SBT daily V. fib arrest - Off sedation following commands not a candidate for hypothermia - Per family report EF 25% - Repeat 2-D echo - Interrogate AICD - Heparin drip - Continue beta lee - Aspirin - Statins - Cardiology consultation Seizure disorder - Depakote Diabetes mellitus - Insulin sliding scale Depressions - Amitriptyline - Sertraline DVT GI prophylaxis - Teds SCDs - Heparin drip - Pepcid Critical Care: The total critical care time was 35 minutes. Time to perform other separately billable procedures was not included in the critical care time. Domenic Barron MD Jul 06, 2017 5:00 am
[2017-07-06] MEDS ORDERED: MAGNESIUM SULFATE INJ 2 GM in SODIUM CHLORIDE 0.9% INJ 96 ML IV PRN (05:15)
[2017-07-06] MEDS ORDERED: SODIUM PHOSPHATE INJ 30 MMOL in SODIUM CHLOR 0.9% 250 ML INJ 240 ML IV PRN (05:15)
[2017-07-06] MEDS ORDERED: MAGNESIUM SULFATE INJ 4 GM in SODIUM CHLORIDE 0.9% INJ 92 ML IV PRN (05:15)
[2017-07-06] MEDS ORDERED: POTASSIUM PHOSPHATE MONOBASIC 500 MG TAB PO PRN (05:15)
[2017-07-06] MEDS ORDERED: POTASSIUM CHLOR 40 MEQ PREMIX 100 ML IV PRN ×2 (05:15)
[2017-07-06] MEDS ORDERED: POTASSIUM CHLOR 20 MEQ PREMIX 100 ML IV PRN ×2 (05:15)
[2017-07-06] MEDS ORDERED: POTASSIUM CHLORIDE 25 MEQ EFFERVESCENT TAB PO PRN (05:15)
[2017-07-06] MEDS ORDERED: POTASSIUM PHOSPHATE MONOBASIC 500 MG TAB PO/TUBE PRN (05:15)
[2017-07-06] MEDS ORDERED: POTASSIUM PHOSPHATE INJ 30 MMOL in SODIUM CHLOR 0.9% 250 ML INJ 250 ML IV PRN (05:15)
[2017-07-06] MEDS ORDERED: MAGNESIUM OXIDE 400 MG TAB PO PRN (05:15)
[2017-07-06] MEDS: HEPARIN-D5W 25,000 U/250 ML 250 ML IV PRN (05:26)
[2017-07-06] MEDS ORDERED: HEPARIN SODIUM - SQ 10,000 UNITS/ML VIAL SQ SCH (06:00)
[2017-07-06 06:41] LABS: HEMATOCRIT 41.8 % (39.0-51.0); HEMOGLOBIN 13.9 GM/DL (13.0-17.0); MEAN CELL VOLUME 87.7 FL (80.0-100.0); MEAN CORPUSCULAR HEMOGLOBIN 29.2 PG (27.0-34.0); MEAN CORPUSCULAR HGB CONC 33.3 % (32.0-36.0); MEAN PLATELET VOLUME 10.9 FL (7.0-11.0); PLATELET COUNT 212 TH/MM3 (150-450); RED BLOOD COUNT 4.77 MIL/MM3 (4.50-5.90); RED CELL DISTRIBUTION WIDTH 14.9 % (11.6-17.2); WHITE BLOOD COUNT 12.1 TH/MM3 (4.0-11.0)
[2017-07-06] MEDS ORDERED: TICAGRELOR 90 MG TAB PO ONE (06:45)
[2017-07-06 07:06] LABS: INTERNATIONAL NORMALIZED RATIO 1.2 RATIO; PROTHROMBIN TIME - PATIENT 12.6 SEC (9.8-11.6)
[2017-07-06] MEDS: CHLORHEXIDINE 0.12% (ORAL KIT) 15 ML CUP MT SCH ×2 (08:00→20:00)
[2017-07-06] MEDS: ISOSORBIDE MONONITRATE 60 MG CR TAB (IMDUR) PO SCH ×2 (09:00→11:30)
[2017-07-06] MEDS: ARTIFICIAL TEARS OPTH SOLN 15 ML BTL EACH EYE SCH ×3 (09:00→18:00)
[2017-07-06] MEDS: DIVALPROEX DR 500 MG TABEC PO SCH ×2 (09:00→20:11)
[2017-07-06] MEDS: ATORVASTATIN 40 MG TAB PO SCH (09:03)
[2017-07-06] MEDS: SERTRALINE HCL 100 MG TAB PO SCH (09:03)
[2017-07-06] MEDS: DOCUSATE SODIUM 50 MG/SENNA 8.6 MG TAB PO SCH ×2 (09:03→20:12)
[2017-07-06] MEDS: FENOFIBRATE 145 MG TAB PO SCH (09:03)
[2017-07-06] MEDS: INSULIN ASPART SUPPLEMENTAL SCALE SQ SCH ×4 (09:03→21:00)
[2017-07-06] MEDS: methylPREDNISolone SOD SUCC 40 MG/1 ML VIAL IV PUSH SCH ×2 (09:04→20:08)
[2017-07-06] MEDS: METOPROLOL TARTRATE 50 MG TAB PO SCH ×2 (09:04→22:37)
[2017-07-06] MEDS: LISINOPRIL 20 MG TAB PO SCH (09:04)
[2017-07-06] MEDS: risperiDONE 1 MG TAB PO SCH ×3 (09:04→21:00)
[2017-07-06] MEDS: FAMOTIDINE 20 MG/2 ML VIAL IV PUSH SCH ×2 (09:04→20:08)
[2017-07-06] MEDS: ASPIRIN 81 MG CHEW TAB CHEW SCH (09:04)
[2017-07-06] MEDS ORDERED: LABETALOL HCL 100 MG/20 ML VIAL IV PUSH PRN (09:30)
[2017-07-06 09:35] LABS: PHOSPHORUS 3.6 MG/DL (2.5-4.9)
[2017-07-06 09:47] LABS: TROPONIN I 0.74 NG/ML (0.02-0.05)
[2017-07-06] MEDS: SODIUM CHLORIDE 0.9% FLUSH 10 ML FLUSH IV FLUSH SCH ×2 (09:56→20:08)
[2017-07-06] MEDS ORDERED: FUROSEMIDE 40 MG/4 ML VIAL IV PUSH ONE (10:00)
[2017-07-06] MEDS ORDERED: POTASSIUM CHLORIDE 25 MEQ EFFERVESCENT TAB PO ONE (10:00)
--- NOTE | 2017-07-06 10:31 | ECHRPT ---
Indication: CARDIOMYOPATHY CONCLUSIONS Mildly dilated left ventricle. Wall thickness is normal. The left ventricular systolic function is moderately reduced with an estimated ejection fraction of 35%. The basal inferior wall is hpokinetic. Posterior wall is at least moderately hpokinetic. [place] is mildly hypokinetic.A pacemaker wire is noted. Trace mitral valve regurgitation. Aortic valve sclerosis is present. The pulmonary valve is not well visualized. There is a trivial pericardial effusion present. BP: 148 / 97 HR: 74 Rhythm: MEASUREMENTS (Male / Female) Normal Values Technical Quality:Good 2D ECHO LV Diastolic Diameter PLAX 5.7 cm 4.2 - 5.9 / 3.9 - 5.3 cm LV Systolic Diameter PLAX 4.8 cm IVS Diastolic Thickness 1.2 cm 0.6 - 1.0 / 0.6 - 0.9 cm LVPW Diastolic Thickness 0.8 cm 0.6 - 1.0 / 0.6 - 0.9 cm LV Relative Wall Thickness 0.3 LA Systolic Diameter LX 4.0 cm 3.0 - 4.0 / 2.7 - 3.8 cm M-MODE Aortic Root Diameter MM 3.2 cm AV Cusp Separation MM 2.1 cm DOPPLER Mitral E Point Velocity 90.8 cm/s Mitral A Point Velocity 90.8 cm/s Mitral E to A Ratio 1.0 FINDINGS LEFT VENTRICLE Mildly dilated left ventricle. Wall thickness is normal. The left ventricular systolic function is moderately reduced with an estimated ejection fraction of 35%. The basal inferior wall is hpokinetic. Posterior wall is at least moderately hpokinetic. [place] is mildly hypokinetic. RIGHT VENTRICLE A pacemaker wire is noted. Normal right ventricular size and systolic function. LEFT ATRIUM The left atrial size is normal. RIGHT ATRIUM The right atrial size is normal. ATRIAL SEPTUM Normal atrial septal thickness without atrial level shunting by limited color doppler interrogation. AORTA The aortic root and proximal ascending aorta are normal in size on limited imaging. MITRAL VALVE Trace mitral valve regurgitation. AORTIC VALVE Aortic valve sclerosis is present. TRICUSPID VALVE Structurally normal tricuspid valve. No tricuspid valve stenosis or regurgitation. PULMONARY VALVE The pulmonary valve is not well visualized. VESSELS The inferior vena cava is normal in size. PERICARDIUM There is a trivial pericardial effusion present. Jose Roberto MD (Electronically Signed) Final Date:06 July 2017 10:30
[2017-07-06] MEDS ORDERED: HEPARIN SODIUM - IV 10,000 UNITS/10 ML VIAL IV PUSH PRN ×2 (11:00)
[2017-07-06] MEDS: ONDANSETRON HCL 4 MG/2 ML VIAL IV PUSH PRN (11:27)
[2017-07-06] MEDS: MORPHINE SULFATE 4 MG/ML INJ IV PUSH PRN ×6 (11:27→22:38)
[2017-07-06] MEDS: NITROGLYCERIN 2% OINT 1 GM PACKET TOPICAL SCH ×3 (12:00→22:52)
[2017-07-06] MEDS: VANCOMYCIN INJ 1,750 MG in SODIUM CHLORID 0.9% 500 ML INJ 500 ML IV SCH ×2 (12:04→22:53)
--- NOTE | 2017-07-06 12:07 | MB ---
cc: MARILYNN LILLY M.D. DATE OF CONSULTATION 07/06/2017 REASON FOR CONSULTATION Evaluation of heart disease. HISTORY OF PRESENT ILLNESS Sebastián Weiss is a 56-year-old man with a longstanding history of noncompliance. He is a lifelong smoker and smokes both cigarettes and marijuana. He had stents a couple times back in . He ended up with a four-vessel bypass in 2004. He has continued to smoke. He has had eight stents he says since then. The last stent was 4-5 years ago. He was just hospitalized 2 weeks ago he says for similar problems he had this time and the left the hospital AMA. The patient has been out of some of his medications but cannot tell me which ones. He does not carry a list of his medications and I do not know what medications he is on. He has been having shortness of breath which he describes as a moisture feeling in his lungs and saliva getting stuck in his throat. It had been getting particularly worse yesterday and when EMS arrived he apparently had agonal breathing and then had a VF arrest and received CPR, defibrillation and epinephrine. Subsequently he had return of spontaneous circulation. He was intubated but now has been extubated. The patient tells me his last stent was 4-5 years ago. I gave him Brilinta earlier this morning because I heard mention that his stents were more recent than that. He has pain in his chest when he moves or takes a deep breath or touches his chest and I am assuming that is rib fracture from CPR. He does not really have any typical angina and he says he did not have angina prior to this admission. He has a [employer] defibrillator that was placed on December 10, 2005. The battery on that has completely . He does not follow with physicians regularly and he has a history of leaving against medical advice. Denies alcohol abuse but does have a history of smoking as described above. PAST MEDICAL HISTORY 1. Heart disease as described. 2. Type 2 diabetes. 3. Tumors removed from the back of his neck and scalp that he says were benign. 4. Finger surgery. 5. Left leg and left ankle fractures with surgery. 6. Diverticulitis four times. 7. Kidney stones in the past. 8. Bleeding hemorrhoids in the past and currently still has hemorrhoids. SOCIAL HISTORY He is single. He is here on vacation with his aunt. He is from [place]. He smokes as described above. Denies alcohol use. FAMILY HISTORY Strongly positive for premature coronary disease. REVIEW OF SYSTEMS Notable for occasional bleeding from hemorrhoids, but none recently. The remaining review of systems is negative. PHYSICAL EXAMINATION GENERAL: An obese pleasant white male. He does not appear to be in acute distress except when he tries to move. VITAL SIGNS: Charted. HEENT: Unremarkable except for male pattern baldness. NECK: Neck veins are hard to discern. There are no bruits. CHEST: Rales at the bases. CARDIAC: S1, S2, S3, regular rate and rhythm, 1/6 systolic murmur. ABDOMEN: Obese, soft, nontender. EXTREMITIES: Intact pedal pulses with trace edema. EKG EKG shows sinus rhythm with left bundle branch block and PVCs. IMAGING His chest x-ray results are charted. LABORATORY Creatinine is 1.09. Troponin has gone from 0.03 up to 0.74. AST and ALT are normal. Glucose has been elevated. IMPRESSION This is a longstanding noncompliant 56-year-old man with ischemic heart disease status post VF arrest with troponin elevation consistent with possible non-STEMI. He has been in and out of the hospital and usually leaves against medical advice from what we can tell so far. His pacemaker battery is completely . He has continued to smoke despite multiple revascularization procedures. His prognosis is terrible. He is at high risk of recurrent sudden cardiac . PLAN Because he is presently in heart failure I am going to give him Lasix 40 IV b.i.d. with potassium supplementation, monitor his potassium and magnesium levels, tentatively plan to do a cardiac cath on him Tuesday morning at 7:30. He may require revascularization, it is not clear. Prior to discharge he needs to have his pacemaker removed and will likely need a defibrillator for prevention of recurrent sudden cardiac . This has all been explained to the patient. He has been told to quit smoking. Further therapy to be determined. MD NASIR Pierce/ASHLEY /11:18 AM /11:34 AM
[2017-07-06] MEDS: POTASSIUM CHLORIDE 20 MEQ CONTROLLED RELEASE TAB PO SCH ×3 (13:20→20:11)
[2017-07-06] MEDS: ALPRAZolam 1 MG TAB PO PRN (13:32)
[2017-07-06] MEDS: FUROSEMIDE 40 MG/4 ML VIAL IV PUSH SCH (17:54)
[2017-07-06] MEDS ORDERED: EPINEPHrine HCL (1:10,000) 1 MG/10 ML SYRINGE ONE (18:23)
[2017-07-06] MEDS: oxyCODONE/ACETAMINOPHEN 10 MG/325 MG TAB PO PRN (20:09)
[2017-07-06] MEDS: TICAGRELOR 90 MG TAB PO SCH (20:11)
--- NOTE | 2017-07-06 20:38 | EKG ---
Date Performed: 07/06/2017 Time Performed: 07:03:00 PTAGE: 56 years EKG: Sinus rhythm WITH FREQUENT VENTRICULAR PREMATURE COMPLEXES LEFT ATRIAL ENLARGEMENT NONSPECIFIC ST-T ABNORMALITIES ABNORMAL ECG PREVIOUS TRACING : 07/05/2017 21.13 Since the prior tracing, there has been no significant [place] DOCTOR: Nathaniel Garcia Interpretating Date/Time 07/06/2017 20:38:07
[2017-07-06] MEDS ORDERED: AMITRIPTYLINE HCL 10 MG TAB PO SCH (21:00)
[2017-07-06] MEDS ORDERED: QUEtiapine FUMARATE 100 MG TAB PO PRN (21:00)
--- NOTE | 2017-07-06 21:16 | EKG ---
Date Performed: 07/06/2017 Time Performed: 03:08:46 PTAGE: 56 years EKG: Sinus rhythm with PVC(s) LBBB Abnormal ECG PREVIOUS TRACING : 07/05/2017 21.13 Compared to prior tracing, SINUS TACHYCARDIA IS NO LONGER PRESENT DOCTOR: Nathaniel Garcia Interpretating Date/Time 07/06/2017 21:15:18
--- NOTE | 2017-07-06 21:33 | EKG ---
Date Performed: 07/05/2017 Time Performed: 21:13:59 PTAGE: 56 years EKG: SINUS TACHYCARDIA INTRAVENTRICULAR CONDUCTION DELAY ABNORMAL ECG INTERPRETATION BASED ON A DEFAULT AGE OF 40 YEARS NO PREVIOUS TRACING DOCTOR: Nathaniel Garcia Interpretating Date/Time 07/06/2017 21:32:34
[2017-07-07] VITALS (15 sets, daily range): BP systolic 114–155; BP diastolic 78–99; PULSE 74–93; RESP 10–20; TEMP 97.7–98.7; O2SAT 95–98
[2017-07-07] MEDS: RESP: ALBUTEROL 2.5 MG/IPRATROPIUM 0.5 MG NEB (SCH) INH ×4 (03:59→20:17)
[2017-07-07] MEDS: AZITHROMYCIN INJ 500 MG in SODIUM CHLOR 0.9% 250 ML INJ 250 ML IV SCH (04:09)
[2017-07-07] MEDS: MORPHINE SULFATE 4 MG/ML INJ IV PUSH PRN ×7 (04:10→23:08)
[2017-07-07 04:17] LABS: AUTOMATED NEUTROPHIL # 12.9 TH/MM3 (1.8-7.7); BASOPHIL # 0.1 TH/MM3 (0-0.2); BASOPHIL % 0.6 % (0.0-2.0); HEMATOCRIT 37.2 % (39.0-51.0); HEMOGLOBIN 12.5 GM/DL (13.0-17.0); LYMPH % 5.8 % (9.0-44.0); LYMPHOCYTE # 0.8 TH/MM3 (1.0-4.8); MEAN CELL VOLUME 88.1 FL (80.0-100.0); MEAN CORPUSCULAR HEMOGLOBIN 29.5 PG (27.0-34.0); MEAN CORPUSCULAR HGB CONC 33.4 % (32.0-36.0); MEAN PLATELET VOLUME 10.6 FL (7.0-11.0); MONO % 4.1 % (0.0-8.0); MONOCYTE # 0.6 TH/MM3 (0-0.9); NEUT % 89.5 % (16.0-70.0); PLATELET COUNT 185 TH/MM3 (150-450); RED BLOOD COUNT 4.23 MIL/MM3 (4.50-5.90); RED CELL DISTRIBUTION WIDTH 14.8 % (11.6-17.2); WHITE BLOOD COUNT 14.5 TH/MM3 (4.0-11.0)
[2017-07-07 04:23] LABS: INTERNATIONAL NORMALIZED RATIO 1.2 RATIO; PROTHROMBIN TIME - PATIENT 11.7 SEC (9.8-11.6)
[2017-07-07 04:48] LABS: ALBUMIN 2.8 GM/DL (3.4-5.0); AST (GOT) 15 U/L (15-37); BICARBONATE 29.3 MEQ/L (21.0-32.0); BLOOD UREA NITROGEN 18 MG/DL (7-18); CALCIUM 7.7 MG/DL (8.5-10.1); CHLORIDE 102 MEQ/L (98-107); CREATININE 1.08 MG/DL (0.60-1.30); GLOMERULAR FILTRATION RATE 71 ML/MIN (>89); GLUCOSE,RANDOM 251 MG/DL (74-106); MAGNESIUM 1.6 MG/DL (1.5-2.5); SODIUM (NA) 140 MEQ/L (136-145)
[2017-07-07 04:49] LABS: ALT (GPT) 13 U/L (12-78); PHOSPHORUS 3.2 MG/DL (2.5-4.9)
[2017-07-07 04:51] LABS: ALKALINE PHOSPHATASE 43 U/L (45-117); TOTAL BILIRUBIN ADULT 0.3 MG/DL (0.2-1.0); TOTAL PROTEIN 6.4 GM/DL (6.4-8.2)
--- NOTE | 2017-07-07 05:03 | RADRPT ---
EXAM DATE/TIME: 07/07/2017 04:02 [place] COMPARISON: No previous studies available for comparison. INDICATIONS : Shortness of breath, possible pulmonary disease. MEDICAL HISTORY : Congestive heart failure. Chronic obstructive pulmonary disease. SURGICAL HISTORY : CABG. ENCOUNTER: Subsequent ACUITY: 3 days PAIN SCORE: Non-responsive. LOCATION: Bilateral chest FINDINGS: Cardiomegaly and sternotomy wires. Pacer/ICD device again noted. There is patchy left lower lobe airs pace disease. CONCLUSION: Left basilar airspace disease. Jai Rosales MD on July 07, 2017 at 5:01 Board Certified Radiologist. This report was verified electronically.
[2017-07-07] MEDS: NITROGLYCERIN 2% OINT 1 GM PACKET TOPICAL SCH ×4 (06:00→23:08)
[2017-07-07] MEDS: CHLORHEXIDINE GLUCONATE 2 % 1 PACK (2 CLOTHS) TOP SCH (06:57)
[2017-07-07] MEDS: oxyCODONE/ACETAMINOPHEN 10 MG/325 MG TAB PO PRN ×3 (06:57→19:37)
[2017-07-07] MEDS: PIPERACIL-TAZO 4.5 GM PREMIX 100 ML IV SCH ×4 (06:58→23:09)
[2017-07-07] MEDS: CHLORHEXIDINE 0.12% (ORAL KIT) 15 ML CUP MT SCH ×2 (07:54→20:00)
[2017-07-07] MEDS: INSULIN ASPART SUPPLEMENTAL SCALE SQ SCH ×4 (08:00→20:46)
[2017-07-07] MEDS: ARTIFICIAL TEARS OPTH SOLN 15 ML BTL EACH EYE SCH ×3 (09:00→17:11)
[2017-07-07] MEDS ORDERED: SODIUM CHLOR 0.9% 1000 ML INJ 1,000 ML IV SCH (09:32)
--- NOTE | 2017-07-07 09:42 | PD.CARD.PN ---
Subjective Subjective Remarks No angina. SOB better Objective Medications Current Medications Medications (Trade) Dose Ordered Sig/Son Route Start Time Stop Time Status Last Admin Sodium Chloride 1,000 ml @ 84 mls/hr [id number] IV 07/06/17 01:11 07/06/17 13:06 (NS Flush) 2 ml UNSCH PRN IV FLUSH 07/06/17 01:15 (NS Flush) 2 ml BID IV FLUSH 07/06/17 09:00 07/06/17 20:08 (Tylenol) 650 mg Q6H PRN PO 07/06/17 01:15 (Morphine Inj) 2 mg Q2H PRN IV PUSH 07/06/17 01:15 07/07/17 04:10 (Pepcid Inj) 20 mg Q12HR IV PUSH 07/06/17 09:00 07/06/17 20:08 (Versed Inj) 2 mg Q1H PRN IV PUSH 07/06/17 01:15 (Tears Naturale Opth Soln) 1 drop TID EACH EYE 07/06/17 09:00 07/06/17 18:00 (Zofran Inj) 4 mg Q6H PRN IV PUSH 07/06/17 01:15 07/06/17 11:27 (Duoneb Neb) 1 ampule Q6HR NEB INH 07/06/17 04:00 07/07/17 08:18 (Duoneb Neb) 1 ampule Q2HR NEB PRN INH 07/06/17 01:15 Miscellaneous Information 1 Q361D XX 07/06/17 01:15 07/06/17 01:15 (Chlorhexidine 2% Cloth) 3 pack Taper DAILY@04 TOP 07/06/17 04:00 07/02/18 03:59 07/07/17 06:57 (Chlorhexidine 2% Cloth) 3 pack UNSCH PRN TOP 07/06/17 01:15 (Tiffany-Colace) 1 tab BID PO 07/06/17 09:00 07/06/17 09:03 (Milk Of Magnesia Liq) 30 ml Q12H PRN PO 07/06/17 01:15 (Senokot) 17.2 mg Q12H PRN PO 07/06/17 01:15 (Dulcolax Supp) 10 mg DAILY PRN RECTAL 07/06/17 01:15 (Lactulose Liq) 30 ml DAILY PRN PO 07/06/17 01:15 (Peridex 0.12% Liq) 15 ml BID@08,20 MT 07/06/17 08:00 07/06/17 08:00 Piperacillin Sod/ Tazobactam Sod 100 ml @ 200 mls/hr Q6H IV 07/06/17 05:00 07/07/17 06:58 Azithromycin 500 mg/Sodium Chloride 250 ml @ 250 mls/hr Q24H IV 07/06/17 01:15 07/07/17 04:09 Pharmacy Profile Note 0 ml @ 0 mls/hr UNSCH OTHER 07/06/17 01:15 (SoluMEDROL INJ) 40 mg Q12H IV PUSH 07/06/17 10:00 07/06/17 20:08 (D50w (Vial) Inj) 50 ml UNSCH PRN IV PUSH 07/06/17 01:30 (Glucagon Inj) 1 mg UNSCH PRN OTHER 07/06/17 01:30 (NovoLOG SUPPLEMENTAL SCALE) 1 ACHS SLIDING SCALE SQ 07/06/17 08:00 07/06/17 12:03 (Heparin Inj) 5,000 units UNSCH PRN IV PUSH 07/06/17 11:00 (Heparin Inj) 2,500 units UNSCH PRN IV PUSH 07/06/17 11:00 Heparin Sodium/ Dextrose 250 ml @ 10 mls/hr TITRATE PRN IV 07/06/17 05:00 07/06/17 05:26 (Xanax) 1 mg Q8H PRN PO 07/06/17 05:00 07/06/17 13:32 (Elavil) 10 mg HS PO 07/06/17 21:00 07/06/17 20:11 (Aspirin Chew) 81 mg DAILY CHEW 07/06/17 09:00 07/06/17 09:04 (Depakote Dr) 500 mg BID PO 07/06/17 09:00 07/06/17 20:11 (Tricor) 145 mg DAILY PO 07/06/17 09:00 07/06/17 09:03 (Imdur) 60 mg DAILY PO 07/06/17 09:00 07/06/17 11:30 (Prinivil) 20 mg DAILY PO 07/06/17 09:00 07/06/17 09:04 (Lopressor) 50 mg BID PO 07/06/17 09:00 07/06/17 22:37 (Zoloft) 100 mg DAILY PO 07/06/17 09:00 07/06/17 09:03 (Lipitor) 40 mg DAILY PO 07/06/17 09:00 07/06/17 09:03 Potassium Chloride 100 ml @ 50 mls/hr Q2H PRN IV 07/06/17 05:15 Potassium Chloride 100 ml @ 50 mls/hr Q2H PRN IV 07/06/17 05:15 (K-Lyte Cl Eff) 50 meq UNSCH PRN PO 07/06/17 05:15 Potassium Chloride 100 ml @ 25 mls/hr UNSCH PRN IV 07/06/17 05:15 Potassium Chloride 100 ml @ 50 mls/hr Q2H PRN IV 07/06/17 05:15 Magnesium Sulfate 4 gm/Sodium Chloride 100 ml @ 50 mls/hr UNSCH PRN IV 07/06/17 05:15 (Mag-Ox) 800 mg UNSCH PRN PO 07/06/17 05:15 Magnesium Sulfate 2 gm/Sodium Chloride 100 ml @ 50 mls/hr UNSCH PRN IV 07/06/17 05:15 (K-Phos) 2,000 mg Q4H PRN PO 07/06/17 05:15 Sodium Phosphate 30 mmol/Sodium Chloride 250 ml @ 42 mls/hr UNSCH PRN IV 07/06/17 05:15 (K-Phos) 2,000 mg UNSCH PRN PO/TUBE 07/06/17 05:15 Potassium Phosphate 30 mmol/ Sodium Chloride 260 ml @ 42 mls/hr UNSCH PRN IV 07/06/17 05:15 (Brilinta) 90 mg BID PO 07/06/17 21:00 Vancomycin HCl 1750 mg/Sodium Chloride 517.5 ml @ 250 mls/hr Q12H IV 07/06/17 11:00 07/06/17 22:53 Miscellaneous Information SPECIFIC LAB TO BE DRAWN:VANCOMYCIN TROUGH DATE TO... ONCE ONCE .XX 07/07/17 10:45 07/07/17 10:46 (Trandate Inj) 20 mg Q3H PRN IV PUSH 07/06/17 09:30 (Lasix Inj) 40 mg BID@09,18 IV PUSH 07/06/17 18:00 07/06/17 17:54 (KCl) 20 meq QID PO 07/06/17 13:00 07/06/17 20:11 (Nitroglycerin 2% Oint) 1 inch Q6HR TOPICAL 07/06/17 12:00 (Percocet 10-325 Mg) 1 tab Q6H PRN PO 07/06/17 18:30 07/07/17 06:57 (risperDAL) 1 mg HS PO 07/06/17 21:00 (SEROquel) 100 mg HS PRN PO 07/06/17 21:00 07/06/17 22:40 Vital Signs / I&O Vital Signs Date Time Temp Pulse Resp B/P (MAP) Pulse Ox O2 Delivery O2 Flow Rate FiO2 07/07/17 08:19 98 Nasal Cannula 2.00 07/07/17 07:53 16 07/07/17 06:00 86 07/07/17 04:03 95 Nasal Cannula 2.00 07/07/17 04:00 98.2 77 12 143/88 (106) 95 07/07/17 04:00 85 07/07/17 02:00 77 07/07/17 00:00 81 07/07/17 00:00 98.5 81 15 134/81 (98) 95 07/06/17 22:00 85 07/06/17 20:41 93 21 07/06/17 20:00 78 07/06/17 20:00 85 16 92 07/06/17 18:31 83 07/06/17 18:31 18 07/06/17 16:00 78 07/06/17 16:00 99.1 78 22 118/72 (87) 97 07/06/17 14:00 78 07/06/17 12:00 98.9 96 22 146/83 (104) 98 07/06/17 10:27 95 Nasal Cannula 4 36 07/06/17 10:00 111 I/O 07/06/17 07/06/17 07/06/17 07/07/17 07/07/17 07/07/17 07:00 15:00 23:00 07:00 15:00 23:00 Intake Total 648 ml 417 ml 500 ml Output Total 1100 ml 1300 ml 100 ml Balance -452 ml 417 ml -800 ml -100 ml Intake Oral 0 ml 500 ml IV Total 648 ml 417 ml Output Urine Total 1100 ml 1300 ml 100 ml # Bowel Movements 0 0 0 Physical Exam Alert Chest: rales gone CV S1S2 RRR with 2/6 DARRYL Abd soft Ext no edema. Femoral pulses are weak. Radial pulses OK Laboratory Laboratory Tests Test 07/06/17 11:48 07/06/17 15:00 07/06/17 21:44 07/07/17 03:48 Activated Partial Thromboplast Time 29.0 SEC 30.3 SEC 31.8 SEC Urine Opiates Screen NEG Urine Barbiturates Screen NEG Urine Amphetamines Screen NEG Urine Benzodiazepines Screen POS Urine Cocaine Screen NEG Urine Cannabinoids Screen POS White Blood Count 14.5 TH/MM3 Red Blood Count 4.23 MIL/MM3 Hemoglobin 12.5 GM/DL Hematocrit 37.2 % Mean Corpuscular Volume 88.1 FL Mean Corpuscular Hemoglobin 29.5 PG Mean Corpuscular Hemoglobin Concent 33.4 % Red Cell Distribution Width 14.8 % Platelet Count 185 TH/MM3 Mean Platelet Volume 10.6 FL Neutrophils (%) (Auto) 89.5 % Lymphocytes (%) (Auto) 5.8 % Monocytes (%) (Auto) 4.1 % Eosinophils (%) (Auto) 0.0 % Basophils (%) (Auto) 0.6 % Neutrophils # (Auto) 12.9 TH/MM3 Lymphocytes # (Auto) 0.8 TH/MM3 Monocytes # (Auto) 0.6 TH/MM3 Eosinophils # (Auto) 0.0 TH/MM3 Basophils # (Auto) 0.1 TH/MM3 CBC Comment DIFF FINAL Differential Comment Prothrombin Time 11.7 SEC Prothromb Time International Ratio 1.2 RATIO Blood Urea Nitrogen 18 MG/DL Creatinine 1.08 MG/DL Random Glucose 251 MG/DL Total Protein 6.4 GM/DL Albumin 2.8 GM/DL Calcium Level 7.7 MG/DL Phosphorus Level 3.2 MG/DL Magnesium Level 1.6 MG/DL Alkaline Phosphatase 43 U/L Aspartate Amino Transf (AST/SGOT) 15 U/L Alanine Aminotransferase (ALT/SGPT) 13 U/L Total Bilirubin 0.3 MG/DL Sodium Level 140 MEQ/L Potassium Level 4.7 MEQ/L Chloride Level 102 MEQ/L Carbon Dioxide Level 29.3 MEQ/L Anion Gap 9 MEQ/L Estimat Glomerular Filtration Rate 71 ML/MIN Lactic Acid Level 1.2 mmol/L Imaging Last 24 hours Impressions Chest X-Ray 07/07/17 0000 Signed Impressions: Service Date/Time: June 04:02 - CONCLUSION: Left basilar airspace disease. Jai Rosales MD Assessment and Plan Problem List: (1) Non-STEMI (non-ST elevated myocardial infarction) ICD Codes: I21.4 - Non-ST elevation (NSTEMI) myocardial infarction (2) Ischemic cardiomyopathy ICD Codes: I25.5 - Ischemic cardiomyopathy (3) Systolic CHF, acute ICD Codes: I50.21 - Acute systolic (congestive) heart failure (4) CAD (coronary artery disease) ICD Codes: I25.10 - Atherosclerotic heart disease of [place] coronary artery without angina pectoris (5) Tobacco abuse ICD Codes: Z72.0 - Tobacco use (6) Noncompliance ICD Codes: Z91.19 - Patient's noncompliance with other medical treatment and regimen (7) Ventricular fibrillation ICD Codes: I49.01 - Ventricular fibrillation Assessment and Plan Lungs improved. Plan cardiac cath 8;30AM. Informed consent obtained. Possible PCI vs. meds vs CABG. Will need AICD prior to discharge Jose Roberto MD Jul 07, 2017 09:42
[2017-07-07] MEDS ORDERED: DIAZEPAM 5 MG TAB PO SCH (09:45)
[2017-07-07] MEDS ORDERED: diphenhydrAMINE HCL 50 MG/ML VIAL IV PUSH SCH (09:45)
[2017-07-07] MEDS: DOCUSATE SODIUM 50 MG/SENNA 8.6 MG TAB PO SCH ×2 (09:51→19:41)
[2017-07-07] MEDS: ISOSORBIDE MONONITRATE 60 MG CR TAB (IMDUR) PO SCH (09:51)
[2017-07-07] MEDS: TICAGRELOR 90 MG TAB PO SCH ×2 (09:52→19:38)
[2017-07-07] MEDS: LISINOPRIL 20 MG TAB PO SCH (09:52)
[2017-07-07] MEDS: POTASSIUM CHLORIDE 20 MEQ CONTROLLED RELEASE TAB PO SCH ×4 (09:52→19:40)
[2017-07-07] MEDS: METOPROLOL TARTRATE 50 MG TAB PO SCH ×2 (09:52→19:40)
[2017-07-07] MEDS: ATORVASTATIN 40 MG TAB PO SCH (09:53)
[2017-07-07] MEDS: FAMOTIDINE 20 MG/2 ML VIAL IV PUSH SCH ×2 (09:54→19:39)
[2017-07-07] MEDS: FUROSEMIDE 40 MG/4 ML VIAL IV PUSH SCH (09:54)
[2017-07-07] MEDS: SODIUM CHLORIDE 0.9% FLUSH 10 ML FLUSH IV FLUSH SCH ×2 (09:54→19:40)
[2017-07-07] MEDS: methylPREDNISolone SOD SUCC 40 MG/1 ML VIAL IV PUSH SCH (09:54)
[2017-07-07] MEDS: SERTRALINE HCL 100 MG TAB PO SCH (09:55)
[2017-07-07] MEDS: FENOFIBRATE 145 MG TAB PO SCH (09:55)
[2017-07-07] MEDS: ASPIRIN 81 MG CHEW TAB CHEW SCH (09:55)
[2017-07-07] MEDS: DIVALPROEX DR 500 MG TABEC PO SCH ×2 (09:55→19:39)
--- NOTE | 2017-07-07 10:33 | HHI.CCPN ---
Subjective Remarks/Hospital Course 56-year-old gentleman from [place] with past medical history of coronary artery disease status post stent placement 2 weeks ago, CHF with EF per family 25%, diabetes mellitus, seizure disorder, depressions, diabetes mellitus was brought in by [facility] in agonal breathing. The patient has been feeling short of breath a few hours prior to event. Per chart documentation when the emergency response arrived they found the patient in agonal breathing and then lost pulses. The rhythm was found to be ventricular fibrillation and he was defibrillated once and given 1 dose of epinephrine. Patient had ROSC right away. He was brought to emergency department at [place], was opening his eyes but in respiratory distress. He was emergently intubated by ED attending for an airway protection. Off sedation he is is able to follow commands and moves all extremities and nods his head to respond. 07/07: Patient extubated yesterday tolerating well breathing comfortably. Hypertensive occasional PVCs noted. Resume home clonidine. Discontinue amitriptyline due to V. tach. Discussed with Dr. Roberto plan is for cardiac catheterization and had an AICD. 2 D Echo EF the left ventricular systolic function is moderately reduced EF 35%. The basal inferior wall is hypokinetic, posterior wall is at least moderately hypokinetic. [place] is mildly hypokinetic. Objective Vital Signs Date Time Temp Pulse Resp B/P (MAP) Pulse Ox O2 Delivery O2 Flow Rate FiO2 07/07/17 08:19 98 Nasal Cannula 2.00 07/07/17 07:53 16 07/07/17 06:00 86 07/07/17 04:00 98.2 143/88 (106) 07/06/17 20:41 21 Intake and Output 07/07/17 07/07/17 07/08/17 08:00 16:00 00:00 Output Total 100 ml Balance -100 ml Result Diagram: 07/07/17 0348 07/07/17 0348 Objective Remarks GENERAL: Well-nourished, well-developed patient, lying in bed SKIN: Warm and dry. HEAD: Normocephalic. EYES: No scleral icterus. No injection or drainage. NECK: Supple, trachea midline. No JVD or lymphadenopathy. CARDIOVASCULAR: Regular rate and rhythm without murmurs, gallops, or rubs. Occasional PVCs RESPIRATORY: Breath sounds equal bilaterally. No accessory muscle use. GASTROINTESTINAL: Abdomen soft, non-tender, nondistended. MUSCULOSKELETAL: No cyanosis, or edema. NEURO EXAM: Alert awake oriented 3 no focal deficits A/P Assessment and Plan Respiratory failure - Status post V. fib arrest - Intubated for airway protection, extubated 07/06/17 - CTA negative for PE - Bilateral infiltrates, on lasix. change to PO - Covered with broad-spectrum antibiotics-Vanc DCd - Follow-up cultures - DuoNeb scheduled and when necessary V. fib arrest - Off sedation following commands not a candidate for hypothermia - Per family report EF 25%. 2 D Echo 07/06 EF the left ventricular systolic function is moderately reduced EF 35%. The basal inferior wall is hypokinetic, posterior wall is at least moderately hypokinetic. [place] is mildly hypokinetic. - Plan for cardiac catheterization and AICD placement tomorrow per Dr. Roberto - Heparin drip, aspirin metoprolol lisinopril and statins - Restart clonidine - Change Lasix to PO Seizure disorder - Depakote Diabetes mellitus - Insulin sliding scale Depressions - DC Amitriptyline due to V. tach -Continue sertraline, risperidone DVT GI prophylaxis - Teds SCDs - Heparin drip - Pepcid Critical Care: Level 3 Transfer to [facility] with Tele. Hospitalist consulted to assume care 07/08/17 Karly Rajan MD Jul 07, 2017 10:33
[2017-07-07] MEDS ORDERED: PHARMACY ORDERED LAB ONE (10:45)
[2017-07-07] MEDS: cloNIDine HCL 0.1 MG TAB PO SCH ×2 (11:11→19:38)
[2017-07-07] MEDS: FUROSEMIDE 20 MG TAB PO SCH (17:11)
[2017-07-07] MEDS: HEPARIN-D5W 25,000 U/250 ML 250 ML IV PRN (17:17)
[2017-07-07] MEDS: risperiDONE 1 MG TAB PO SCH (19:39)
[2017-07-07] MEDS: ALPRAZolam 1 MG TAB PO PRN (21:19)
[2017-07-08] VITALS: BP 118/75; PULSE 75; RESP 18; TEMP 98.6; O2SAT 96
[2017-07-08] MEDS: MORPHINE SULFATE 4 MG/ML INJ IV PUSH PRN ×3 (01:25→12:12)
[2017-07-08] MEDS: oxyCODONE/ACETAMINOPHEN 10 MG/325 MG TAB PO PRN (01:53)
[2017-07-08 02:00] VITALS: PULSE 80
[2017-07-08 03:50] LABS: AUTOMATED NEUTROPHIL # 10.8 TH/MM3 (1.8-7.7); BASOPHIL % 0.3 % (0.0-2.0); EOSINOPHIL # 0.1 TH/MM3 (0-0.4); EOSINOPHIL % 0.6 % (0.0-4.0); HEMATOCRIT 42.7 % (39.0-51.0); HEMOGLOBIN 14.1 GM/DL (13.0-17.0); LYMPHOCYTE # 2.1 TH/MM3 (1.0-4.8); MEAN CELL VOLUME 89.3 FL (80.0-100.0); MEAN CORPUSCULAR HEMOGLOBIN 29.5 PG (27.0-34.0); MEAN PLATELET VOLUME 10.7 FL (7.0-11.0); MONO % 7.5 % (0.0-8.0); MONOCYTE # 1.1 TH/MM3 (0-0.9); NEUT % 76.6 % (16.0-70.0); PLATELET COUNT 227 TH/MM3 (150-450); RED BLOOD COUNT 4.78 MIL/MM3 (4.50-5.90); RED CELL DISTRIBUTION WIDTH 15.3 % (11.6-17.2); WHITE BLOOD COUNT 14.2 TH/MM3 (4.0-11.0)
[2017-07-08] MEDS: RESP: ALBUTEROL 2.5 MG/IPRATROPIUM 0.5 MG NEB (SCH) INH ×3 (03:52→15:20)
[2017-07-08 04:00] VITALS: BP 144/92; PULSE 80; RESP 20; TEMP 98.4; O2SAT 100
[2017-07-08] MEDS: CHLORHEXIDINE GLUCONATE 2 % 1 PACK (2 CLOTHS) TOP SCH (04:00)
[2017-07-08 04:30] LABS: ALBUMIN 3.4 GM/DL (3.4-5.0); ALKALINE PHOSPHATASE 47 U/L (45-117); ALT (GPT) 16 U/L (12-78); AST (GOT) 20 U/L (15-37); BICARBONATE 32.6 MEQ/L (21.0-32.0); BLOOD UREA NITROGEN 18 MG/DL (7-18); CALCIUM 8.1 MG/DL (8.5-10.1); CHLORIDE 101 MEQ/L (98-107); CREATININE 1.11 MG/DL (0.60-1.30); FREE T4 1.06 NG/DL (0.76-1.46); GLOMERULAR FILTRATION RATE 69 ML/MIN (>89); GLUCOSE,RANDOM 87 MG/DL (74-106); MAGNESIUM 1.8 MG/DL (1.5-2.5); PHOSPHORUS 3.1 MG/DL (2.5-4.9); SODIUM (NA) 138 MEQ/L (136-145); TOTAL BILIRUBIN ADULT 0.5 MG/DL (0.2-1.0); TOTAL PROTEIN 7.7 GM/DL (6.4-8.2)
[2017-07-08] MEDS: PIPERACIL-TAZO 4.5 GM PREMIX 100 ML IV SCH ×2 (04:41→11:00)
[2017-07-08 04:44] VITALS: RESP 18
[2017-07-08 06:00] VITALS: PULSE 74
[2017-07-08] MEDS: ONDANSETRON HCL 4 MG/2 ML VIAL IV PUSH PRN (06:23)
[2017-07-08] MEDS: NITROGLYCERIN 2% OINT 1 GM PACKET TOPICAL SCH ×2 (06:23→12:12)
[2017-07-08] MEDS ORDERED: HEPARIN-NS/PF FLUSH BAG 2,000 ML IV FLUSH ONE (07:23)
[2017-07-08] MEDS ORDERED: HEPARIN SODIUM - IV 10,000 UNITS/10 ML VIAL ONE (07:26)
[2017-07-08] MEDS ORDERED: VERAPAMIL HCL 5 MG/2 ML VIAL ONE (07:26)
[2017-07-08] MEDS ORDERED: MIDAZOLAM HCL 2 MG/2 ML VIAL ONE (07:37)
[2017-07-08] MEDS: INSULIN ASPART SUPPLEMENTAL SCALE SQ SCH ×2 (08:00→12:00)
[2017-07-08] MEDS ORDERED: MORPHINE SULFATE 10 MG/ML INJ ONE (08:00)
[2017-07-08] MEDS: CHLORHEXIDINE 0.12% (ORAL KIT) 15 ML CUP MT SCH (08:00)
[2017-07-08] MEDS: DOCUSATE SODIUM 50 MG/SENNA 8.6 MG TAB PO SCH (09:00)
[2017-07-08] MEDS ORDERED: POTASSIUM CHLORIDE 25 MEQ EFFERVESCENT TAB NG SCH (09:00)
[2017-07-08] MEDS ORDERED: predniSONE 20 MG TAB PO SCH (09:00)
[2017-07-08] MEDS: DIVALPROEX DR 500 MG TABEC PO SCH (09:00)
[2017-07-08] MEDS: FAMOTIDINE 20 MG/2 ML VIAL IV PUSH SCH (09:00)
[2017-07-08] MEDS: SODIUM CHLORIDE 0.9% FLUSH 10 ML FLUSH IV FLUSH SCH (09:00)
[2017-07-08] MEDS: ARTIFICIAL TEARS OPTH SOLN 15 ML BTL EACH EYE SCH ×2 (09:00→13:00)
--- NOTE | 2017-07-08 09:14 | CATHPROC ---
[employer] HIS Report Study Information Study Number Admission Scheduled Start Study Start [id number] Jul 05 2017 10:22PM 07/08/2017 Jul 08 2017 6:55AM [place] [facility] Cardiac Catheterization Admit Source Facility Department Emergency department [facility] - Land Development Manager Physician and Clinical Staff Initial Jose Bernard Tower Observer Shelby Valdez,SHARI Tower ObserverPatric Harper,SHARI Recorder Beni, Christina,INSTRUMENT AND CONTROL SERVICE PERSON TECH2 Scrub Bita De La O,WORD PROCESSOR TECH2 Procedures Performed Procedure Location (Site) Vessel Name Angiogram LV Asc. Aorta (A) Aorta Coronary Angiograms LCA Left Coronary Coronary Angiograms RCA Right Coronary Coronary Angiograms MENA-LAD Left Coronary Coronary Angiograms Gft. Stump 1 SVG Graft Coronary Angiograms Gft. Stump 2 SVG Graft LV Gram-hand inj. LV LV Ventricle Equipment Time Circus Agent Description Size Mfg Part Number Used/Scraped TRANSDUCER, TRUWAVE [id number] 08:24 MCDONALD MATAMOROS * Used W/STOCKCOCK *[id number] 534-560T *[id number] [id number] *[id number] [id number] *[id number] 08:24 MALLINCKRODT SYRINGE, ANGIOMAT 150ML 150ML *[id number] Used 2SUB [id number] 08:24 [employer] PACK, CCL CUSTOM * Used *[id number] 08:24 [employer] SUPPORT, ARTERIAL ADULT 77153 *[id number] Used [id number] 08:24 [employer] PACER PEN, SKIN DUAL W/ RULER * Used *[id number] PIG STRAIGHT DXTERITY 08:38 MEDTRONIC FR 5 [id number] Used CATHETER BAND, RADIAL COMPRESSION TR [id number] 08:48 [employer] Access MEDICAL 24CM Used SHORT 24 *[id number] 08:24 [employer] Access MEDICAL WIRE, EXCHANGE 260CM 3MMJ 260CM Used *[id number] 08:24 NAMIC MANIFOLD, 4 PORT * Used *[id number] 08:38 NAMIC TUBING, HIGH PRESSURE 20" 20" Used *[id number] 08:24 [employer]COMED OMNIPAQUE, 350 MG, 100ML 100ML [id number] Used 08:41 [employer]COMED OMNIPAQUE, 350 MG, 50ML 50ML [id number] Used [id number] 08:24 [employer] MED[employer] BLANKET,WARM AIR CCL * Used *[id number] 08:24 [employer] MEDICAL JELCO NEEDLE 4056 *[id number] Used 08:39 [employer] MEDICAL JELCO NEEDLE 4056 *[id number] Used SHEATH, FR6 TRANSRADIAL RM*[id number] 08:24 [employer] FR 6 Used SLENDER 10CM *[id number] History: Current Medications Medication Dosage/Unit Route Frequency Last Date/Time Taken Glucophage Imdur LOPRESSOR LISINOPRIL ASA Xanax Magnesium CLONIDINE History: Allergies Allergy Reaction No Allergy Information Available History: Risk Factors Family History of Hypertension Dyslipidemia Previous HI Previous Heart Failure Premature CAD Yes No No Yes Yes Prior Valve Prior PCI Prior PCIDate Prior CABG Prior CABGDate Surgery No Yes 05/23/2000 Yes 05/23/2004 Cerebrovascular Peripheral Artery Chronic Lung On Dialysis Diabetes Diabetes Therapy Disease Disease Disease No No No No Yes Oral History: Symptoms/Diagnosis Selection Items Palpitations SOB History: CV Disease Selection Items Cardiomyopathy ischemic Known CAD History: Stress Tests Stress or Imaging Studies Performed No History: HI/CV Data Previous Cath Date Previous CABG Date 05/23/2000 05/23/2004 History: Other Current Smoker Method Yes Cigarettes Labs Hgb (g/dl) Hct (%) RBC (MIL/MM3) WBC (l/cumm) Platelets (thousands) 11.60-17.00 35.00-51.00 4.00-5.90 4.00-11.00 150.00-450.00 14.1 42.7 4.7 14.2 227 Glucose (mg/dl) BUN (mg/dl) Creatinine (mg/dl) BUN:Creatinine (1:x) 74.00-106.00 7.00-18.00 0.50-1.30 10.00-20.00 87 18 1.1 16.4 Na (meq/l) K (meq/l) CO2 (mmol/L) Ca (mg/dl) 136.00-145.00 3.50-5.10 21.00-32.00 8.50-10.10 138 4.3 32.6 8.1 PTT (sec) 24.30-30.10 33.1 Troponin I (ng/ml) CPK-MB (ng/ML) 0.02-0.05 0.50-3.60 0.57 Not Drawn Medication Medication Total Dose (Bolus/Oral) Medication Total Dosage/Unit 1% XYLOCAINE 20 mL MORPHINE 4 mg RADIAL COCKTAIL 5 mL (Bolus) VERSED 2 mg Medications (Bolus/Oral) Medication Time Given Dosage/Unit Administered By Reason VERSED 07/08/2017 7:58:04 AM 2 mg Shelby Valdez 2 mg VERSED given in lab by Shelby Valdez, RN in Right Hand via Peripheral IV. Ordered by Susie Roberto. 1% XYLOCAINE 07/08/2017 7:58:27 AM 20 mL Jose Roberto 20 mL 1% XYLOCAINE given in lab by Jose Roberto in Left Radial via Subcutaneous. Ordered by Jose Roberto. MORPHINE 07/08/2017 8:01:09 AM 4 mg Shelby Valdez 4 mg MORPHINE given in lab by Shelby Valdez, RN in Right Hand via Peripheral IV. Ordered by Jose Roberto. Ntg 200mcg Verapamil 2.5mg Heparin RADIAL COCKTAIL 07/08/2017 8:22:18 AM 5 mL (Bolus) Jose Roberto 2500U 5 mL (Bolus) RADIAL COCKTAIL given in lab by Jose Roberto in Left Radial via Radial. Using [Solution Name]. Ordered by Jose Roberto. Reason: Ntg 200mcg Verapamil 2.5mg Heparin 2500U. Medication (Drip) Medication Time Given Dosage/Unit Concentration/Unit Diluent (ml) Solution IV Solutions 07/08/2017 7:12:10 AM 0 mL (IV) 500 NaCl .9 IV Solutions given in lab by Patric Lebron, SHARI in Right Hand via Peripheral IV. Pump/Drip Flow = 20 ml/hr using NaCl .9. Ordered by Jose Roberto. Initial Case Assessment Cardiovascular HR Rhythm NIBP Chest Pain 74 sr/pvc's 139/116 0 Circulatory - Right Pulses Dorsalis Pedis Femoral 1 1 Scale (0,1,2,3,4,d) Circulatory - Left Pulses Dorsalis Pedis Femoral Scale (0,1,2,3,4,d) Neurological State Oriented to time-place- Alert Moves all extremities person Comment: Pt c/o rib pain from fracrured ribs post CPR Respiration - General Respiration Rate SpO2 (%) O2 (lpm) (B/min) 12 100 3 Final Case Assessment Cardiovascular HR Rhythm NIBP Chest Pain 77 sr/pvc's 116/94 0 Circulatory - Right Pulses Dorsalis Pedis Femoral 1 1 Scale (0,1,2,3,4,d) Circulatory - Left Pulses Dorsalis Pedis Femoral Scale (0,1,2,3,4,d) Neurological State Oriented to time-place- Alert Moves all extremities person Respiration - General Respiration Rate SpO2 (%) (B/min) 13 96 Chronological Log Time Study Chronological Log 7:06:28 Patient arrived via Bed. 7:06:30 Patient Name, D.O.B, / Armband Verified By R.N. 7:06:35 Consent signed by the physician and the patient and verified by the Land Development Manager staff. 7:06:36 Pre-op and post- op instructions given; patient acknowledges understanding of instructions. 7:06:37 Verbal Stimulation=2 Physical Stimulation=2 Airway=2 Respiration=2 TOTAL=8. (0=absent, 1=ham ited, 2=present) 7:11:42 Presedation assessment performed by Land Development Manager RN. 7:11:46 Allens test performed on the right radial and ulnar artery. 7:12:02 Patient has been NPO for More than 6Hrs. 7:12:04 Skin Breakdown-nicks on chin from shaving. 7:12:06 Juan Pablo Prominences Protected 7:12:09 A # 20 IV was noted in the Hand (right). Grade = patent IV Solutions given in lab by Patric Lebron, RN in Right Hand via Peripheral IV. Pump/Drip Flow = 20 ml/hr using NaCl .9. 7:12:10 Ordered by Jose Roberto. 7:12:11 A # 20 IV was noted in the Antecubital (right). Grade = 0 7:12:13 History and physical on the chart or being dictated. Assessment: Initial Case, HR=74 BPM, Rhythm=sr/pvc's, VDJX=119/116 mmhg, Chest Pain=0 Right Pulses: Atif Ped=1, Femoral=1 7:12:14 Left Pulses: Radial=2 Neurological: State=Alert, Ox3, CAMERON, Comment=Pt c/o rib pain from fracrured ribs post CPR Respiration: Resp=12 B/min, IrL9=317 %, O2=3 lpm Vitals capture started with the following parameters, Patient=Adult, Interval=5 min, Initial Pre sebyd=887 mmHg, 7:12:18 Deflation Rate=5 mmHg, Cuff placed on Left Arm 7:12:55 RAUB=151/116 mmhg, SpO2=96.0 %, Resp=12 B/min 7:15:09 Reference ECG taken 7:17:48 HR=74 bpm, PCRJ=644/95 mmhg, SpO2=96.0 %, Resp=10 B/min 7:22:49 HR=74 bpm, NUMA=375/90 mmhg, InV9=568.0 %, Resp=11 B/min 7:24:14 Right groin and right wrist prepped with 2% chlorhexidine, and draped after a 3 min. waiting time. 7:27:50 HR=78 bpm, PJKU=952/95 mmhg, Resp=16 B/min 7:29:16 MD paged 7:29:44 Pressure channel 1 zeroed. 7:32:51 HR=72 bpm, LBOF=209/92 mmhg, SpO2=95.0 %, Resp=8 B/min 7:37:48 HR=73 bpm, EKAS=032/92 mmhg, SpO2=96.0 %, Resp=10 B/min 7:42:51 HR=73 bpm, NNFO=926/85 mmhg, SpO2=96 %, Resp=8 B/min 7:46:00 MD arrived. 7:47:50 HR=69 bpm, MPMK=525/86 mmhg, SpO2=97 %, Resp=9 B/min 7:52:49 HR=78 bpm, BTJW=122/98 mmhg, SpO2=95 %, Resp=10 B/min Time Out. Correct patient, correct procedure, correct physician, power injector not loaded with contrast with surgical 7:57:27 team present. Time Out Concurred by MD and individual staff in procedure. 7:57:52 HR=78 bpm, KQBC=294/94 mmhg, SpO2=94.0 %, Resp=19 B/min 7:58:04 2 mg VERSED given in lab by Shelby Valdez, RN in Right Hand via Peripheral IV. Ordered by Jose Roberto. 7:58:20 Case Start 7:58:27 20 mL 1% XYLOCAINE given in lab by Jose Roberto in Left Radial via Subcutaneous. Ordered by Jose Roberto. 8:01:09 4 mg MORPHINE given in lab by Shelby Valdez, RN in Right Hand via Peripheral IV. Ordered Jose Hernandez. 8:02:49 HR=80 bpm, DQHO=779/97 mmhg, SpO2=94.0 %, Resp=10 B/min 8:08:32 HR=75 bpm, PBJU=417/75 mmhg, SpO2=91.0 %, Resp=8 B/min 8:13:26 HR=74 bpm, QWJL=849/74 mmhg, SpO2=97 %, Resp=7 B/min 8:17:53 HR=72 bpm, QVFB=937/76 mmhg, SpO2=96.0 %, Resp=7 B/min 8:21:27 Access site was Radial Artery. left A SHEATH, FR6 TRANSRADIAL SLENDER 10CM FR 6 was advanced into the Radial (left) using the Percut aneous 8:21:52 technique. 5 mL (Bolus) RADIAL COCKTAIL given in lab by Jose Roberto in Left Radial via Radial. Using [Lilian ution Name]. Ordered 8:22:18 by Jose Roberto. Reason: Ntg 200mcg Verapamil 2.5mg Heparin 2500U. 8:22:56 HR=74 bpm, LQUR=390/68 mmhg, SpO2=95.0 %, Resp=7 B/min A JL 4.0 INFINITI CATHETER FR 5 was advanced over a wire. OMNIPAQUE, 350 MG, 100ML 100ML was use d for 8:25:23 injections. 8:27:55 HR=70 bpm, NIBP=93/63 mmhg, SpO2=93.0 %, Resp=8 B/min 8:28:31 The LCA was injected and visualized at various angles. OMNIPAQUE, 350 MG, 100ML 100ML used. Recorded Pressure: Ao, HR=73, Condition=Condition 1 8:28:40 (Aorta) Ao 95/66/80 After removing the current catheter a JR 4.0 INFINITI CATHETER FR 5 was advanced over a WIRE, EX CHANGE 260CM 8:29:16 3MMJ 260CM. Recorded Pressure: LV, HR=73, Condition=Condition 1 8:32:19 (Left Ventricle) LV 97/16/24 8:32:30 The LV was manually injected with 10 cc's and visualized. OMNIPAQUE, 350 MG, 100ML 100ML use d. Recorded Pressure: LV, Ao, HR=77, Condition=Condition 1 8:33:19 (Left Ventricle) LV 103/21/28, (Aorta) Ao 99/71/86 8:33:29 HR=75 bpm, EDFH=490/74 mmhg, SpO2=94.0 %, Resp=9 B/min 8:33:57 The RCA was injected and visualized at various angles. OMNIPAQUE, 350 MG, 100ML 100ML used. 8:34:12 The Gft. Stump 1 was injected and visualized at various angles. OMNIPAQUE, 350 MG, 100ML 100 ML used. 8:34:45 The Gft. Stump 2 was injected and visualized at various angles. OMNIPAQUE, 350 MG, 100ML 100 ML used. After removing the current catheter a PIG STRAIGHT DXTERITY CATHETER FR 5 was advanced over a WI RE, 8:35:12 EXCHANGE 260CM 3MMJ 260CM. 8:37:51 HR=72 bpm, SHJU=969/81 mmhg, SpO2=95.0 %, Resp=7 B/min 8:40:23 The Asc. Aorta (A) was injected at 20 cc/sec for a total of 40. OMNIPAQUE, 350 MG, 50ML 50ML used. After removing the current catheter a ROBERT INFINITI CATHETER FR 5 was advanced over a WIRE, EXCHA NGE 260CM 8:41:23 3MMJ 260CM. 8:43:27 HR=75 bpm, BJGT=342/70 mmhg, SpO2=95.0 %, Resp=8 B/min 8:43:56 The MENA-LAD was injected and visualized at various angles. OMNIPAQUE, 350 MG, 100ML 100ML u sed. 8:45:58 Catheter was removed over wire. 8:46:48 Case End 8:47:53 HR=74 bpm, OUKB=298/94 mmhg, SpO2=97.0 %, Resp=12 B/min, Pain=0, Paec=2 Radial Compression Device Used. 12 mLs of air placed in BAND, RADIAL COMPRESSION TR SHORT 24 24C M. Affected 8:50:03 hand 97 % O2 saturation. 8:50:27 No case complications noted. 8:50:29 Cine recording checked. Assessment: Final Case, HR=77 BPM, Rhythm=sr/pvc's, WYMG=157/94 mmhg, Chest Pain=0 Right Pulses: Atif Ped=1, Femoral=1 8:50:32 Left Pulses: Radial=2 Neurological: State=Alert, Ox3, CAMERON Respiration: Resp=13 B/min, SpO2=96 % 8:53:37 HR=77 bpm, VGPL=551/78 mmhg, Resp=10 B/min 9:05:19 Patient transported to DOCU. End Study - Contrast Media Used In Study Contrast Total Opened (mL) Total Used (mL) Total Wasted (mL) Omnipaque 80 80 0 End Study - Maximum Contrast Load Max Contrast Load (mL) 434.5 End Study - Radiation Exposure Fluoro Time (minutes) 6.9 End Study - Sheaths Sheaths Pulled By Sheath Hold Time (min) Bita De La O End Study - Patient Disposition Complications Transferred To Interventional Outcome No Telemetry Bed No attempt made
[2017-07-08] MEDS ORDERED: MISC INFORMATION XX ONE (09:15)
--- NOTE | 2017-07-08 09:48 | MA ---
cc: MARILYNN LILLY M.D. DATE 07/08/2017 PROCEDURE PERFORMED 1. Left heart catheterization. 2. Left ventriculography. 3. Coronary angiography. 4. Bypass graft angiography. 5. Supravalvular aortography. 6. Left internal mammary arteriography. 7. Left radial arterial access approach. DESCRIPTION OF PROCEDURE The patient was brought to the cardiac greenhouse laborer in a fasting state. The patient was prepped and draped in a sterile fashion. Using 1% lidocaine for local anesthesia and using ultrasound guidance I was able to insert a Terumo Slender sheath in the left radial artery. Multiple sticks were required but this was accomplished without complication. A standard cocktail was given of heparin, Verapamil and nitroglycerin. A left 4 Francine was then used to image the left coronary artery. A right Francine was then used to image the right coronary artery. The right Francine was used to obtain an left ventriculogram and a pullback. The right Francine was also used to image the vein graft stumps. An ROBERT catheter was then used to image the left internal mammary bypass. The Slender sheath was then removed with a Terumo band placed. There were no complications. FINDINGS HEMODYNAMICS Left ventricular pressure was 103/21 with an end-diastolic pressure of 28. Aortic pressure was 99/71 with a mean of 86. There was no gradient during pullback from the left ventricle to the aorta. LEFT VENTRICULOGRAPHY Left ventriculography shows an ejection fraction of about 30%. CORONARY ANGIOGRAPHY The left main coronary artery appears normal. It bifurcates into the LAD and circumflex vessels. The LAD has 50% ostial disease and is totally occluded after the first septal senior infrastructure engineer branch. The circumflex artery is totally occluded after a very tiny marginal branch before the major circumflex marginal branch. The right coronary is probably dominant. The vessel is totally occluded proximally. The septal collateral from the LAD provides some collateral flow to the right coronary artery and the filling of the LAD for the left internal mammary bypass also collateralizes a portion of the right coronary artery. SUPRAVALVULAR AORTOGRAM No grafts were seen off the aorta. BYPASS GRAFT ANGIOGRAPHY Two markers and two stumps were identified on the aorta. The left internal mammary artery bypass graft is widely patent to the distal LAD. There is retrograde flow to multiple septals and a small diagonal. Antegrade flow is notable for the fact that the distal LAD is only a 1 mm thready vessel and wraps around the LV apex and is severely and diffusely diseased. CONCLUSIONS 1. Elevated left ventricular end-diastolic pressure. 2. Severely impaired LV function. 3. Severe three-vessel coronary artery disease. 4. Only one patent graft which is to the LAD and the LAD is diffusely and severely diseased, not amenable to intervention or bypass. RECOMMENDATIONS Since the patient presented with aborted sudden cardiac from ventricular fibrillation he qualifies to have a defibrillator. Will try to have that done this admission. MD NASIR Pierce/ASHLEY /9:06 AM /9:24 AM
[2017-07-08] MEDS ORDERED: SODIUM CHLOR 0.9% 1000 ML INJ 1,000 ML IV SCH (10:38)
[2017-07-08] MEDS ORDERED: POVIDONE IODINE 5% (ANTISEPSIS KIT) 4 APPLICATIONS TOPICAL SCH (10:45)
[2017-07-08] MEDS ORDERED: MUPIROCIN 2% OINT 1 APPLIC/GM SYR EACH NARE SCH (10:45)
[2017-07-08] MEDS ORDERED: CHLORHEXIDINE GLUCONATE 2 % 1 PACK (2 CLOTHS) TOPICAL SCH ×2 (10:45→11:15)
--- NOTE | 2017-07-08 11:12 | HHI.PR ---
Subjective Remarks 56-year-old gentleman from [place] with past medical history of coronary artery disease status post stent placement 2 weeks ago, CHF with EF per family 25%, diabetes mellitus, seizure disorder, depressions, diabetes mellitus was brought in by [facility] in agonal breathing. The patient has been feeling short of breath a few hours prior to event. Per chart documentation when the emergency response arrived they found the patient in agonal breathing and then lost pulses. The rhythm was found to be ventricular fibrillation and he was defibrillated once and given 1 dose of epinephrine. Patient had ROSC right away. He was brought to emergency department at [place], was opening his eyes but in respiratory distress. He was emergently intubated by ED attending for an airway protection. Off sedation he is is able to follow commands and moves all extremities and nods his head to respond. 07/07: Patient extubated yesterday tolerating well breathing comfortably. Hypertensive occasional PVCs noted. Resume home clonidine. Discontinue amitriptyline due to V. tach. Discussed with Dr. Lilly plan is for cardiac catheterization and had an AICD. 2 D Echo EF the left ventricular systolic function is moderately reduced EF 35%. The basal inferior wall is hypokinetic, posterior wall is at least moderately hypokinetic. [place] is mildly hypokinetic. 2-16 had CARDIAC CATH TODAY- TO GO FOR AICD LATER TODAY [facility] RN AND PT SEEN IN DOCU PATIENT THREATENING TO POSSIBLY LEAVE AMA Objective Vitals Vital Signs Date Time Temp Pulse Resp B/P (MAP) Pulse Ox O2 Delivery O2 Flow Rate FiO2 07/08/17 06:00 74 07/08/17 04:44 18 07/08/17 04:00 80 07/08/17 04:00 98.4 80 20 144/92 (109) 100 07/08/17 02:53 19 07/08/17 02:00 80 07/08/17 00:00 75 07/08/17 00:00 98.6 75 18 118/75 (89) 96 07/07/17 22:00 90 07/07/17 20:17 97 21 07/07/17 20:00 79 07/07/17 20:00 98.7 79 20 155/99 (117) 95 07/07/17 18:00 75 07/07/17 16:00 98.0 78 10 131/91 (104) 97 07/07/17 16:00 78 07/07/17 14:00 78 07/07/17 12:00 74 07/07/17 12:00 97.9 74 11 114/78 (90) 95 I/O 07/07/17 07/07/17 07/07/17 07/08/17 07/08/17 07/08/17 07:00 15:00 23:00 07:00 15:00 23:00 Intake Total 867.5 ml 800 ml 1783.6 ml Output Total 100 ml 2700 ml 950 ml 300 ml Balance -100 ml 867.5 ml -1900 ml 833.6 ml -300 ml Intake Oral 700 ml 680 ml IV Total 867.5 ml 100 ml 1103.6 ml Output Urine Total 100 ml 2700 ml 950 ml 300 ml # Voids 1 # Bowel Movements 0 0 Result Diagram: [id number]/08/1731807/08/17318 Other Results Laboratory Tests Test 07/05/17 21:35 07/05/17 21:55 07/06/17 01:00 07/06/17 01:49 White Blood Count 23.1 TH/MM3 Red Blood Count 5.41 MIL/MM3 Hemoglobin 16.5 GM/DL Hematocrit 47.6 % Mean Corpuscular Volume 88.1 FL Mean Corpuscular Hemoglobin 30.5 PG Mean Corpuscular Hemoglobin Concent 34.6 % Red Cell Distribution Width 14.5 % Platelet Count 260 TH/MM3 Mean Platelet Volume 9.9 FL Neutrophils (%) (Auto) 53.1 % Lymphocytes (%) (Auto) 31.2 % Monocytes (%) (Auto) 6.0 % Eosinophils (%) (Auto) 8.6 % Basophils (%) (Auto) 1.1 % Neutrophils # (Auto) 12.2 TH/MM3 Lymphocytes # (Auto) 7.2 TH/MM3 Monocytes # (Auto) 1.4 TH/MM3 Eosinophils # (Auto) 2.0 TH/MM3 Basophils # (Auto) 0.3 TH/MM3 CBC Comment AUTO DIFF Differential Total Cells Counted 100 Neutrophils % (Manual) 46 % Band Neutrophils % 3 % Lymphocytes % 35 % Monocytes % 7 % Eosinophils % 9 % Neutrophils # (Manual) 11.3 TH/MM3 Differential Comment FINAL DIFF MANUAL Platelet Estimate NORMAL Platelet Morphology Comment NORMAL Red Cell Morphology Comment NORMAL Prothrombin Time 11.3 SEC Prothromb Time International Ratio 1.1 RATIO Activated Partial Thromboplast Time 28.3 SEC Blood Urea Nitrogen 14 MG/DL Creatinine 1.40 MG/DL Random Glucose 242 MG/DL Calcium Level 8.5 MG/DL Sodium Level 140 MEQ/L Potassium Level 4.0 MEQ/L Chloride Level 101 MEQ/L Carbon Dioxide Level 27.2 MEQ/L Anion Gap 12 MEQ/L Estimat Glomerular Filtration Rate 52 ML/MIN Troponin I 0.03 NG/ML B-Type Natriuretic Peptide 675 PG/ML Blood Gas Puncture Site RT RADIAL RT RADIAL Blood Gas Patient Temperature 98.6 98.6 Blood Gas HCO3 28 mmol/L 27 mmol/L Blood Gas Base Excess 1.6 mmol/L 2.4 mmol/L Blood Gas Oxygen Saturation 93 % 95 % Arterial Blood pH 7.25 7.40 Arterial Blood Partial Pressure CO2 67 mmHG 44 mmHg Arterial Blood Partial Pressure O2 210 mmHG 129 mmHg Arterial Blood Oxygen Content 19.9 Vol % 18.8 Vol % Arterial Blood Carboxyhemoglobin 4.8 % 2.1 % Arterial Blood Methemoglobin 1.3 % 1.6 % Blood Gas Hemoglobin 14.9 G/DL 13.9 G/DL Oxygen Delivery Device VENTILATOR VENT Blood Gas Ventilator Setting AC14/600/5PEEP SEE COMMENT Blood Gas Inspired Oxygen 100 % 75 % Nasal Screen MRSA (PCR) MRSA NOT DETECTED Test 07/06/17 02:29 07/06/17 06:10 07/06/17 08:36 07/06/17 11:48 White Blood Count 13.8 TH/MM3 12.1 TH/MM3 Red Blood Count 4.74 MIL/MM3 4.77 MIL/MM3 Hemoglobin 14.1 GM/DL 13.9 GM/DL Hematocrit 41.3 % 41.8 % Mean Corpuscular Volume 87.1 FL 87.7 FL Mean Corpuscular Hemoglobin 29.8 PG 29.2 PG Mean Corpuscular Hemoglobin Concent 34.2 % 33.3 % Red Cell Distribution Width 14.7 % 14.9 % Platelet Count 213 TH/MM3 212 TH/MM3 Mean Platelet Volume 10.3 FL 10.9 FL Neutrophils (%) (Auto) 93.0 % Lymphocytes (%) (Auto) 3.5 % Monocytes (%) (Auto) 2.8 % Eosinophils (%) (Auto) 0.3 % Basophils (%) (Auto) 0.4 % Neutrophils # (Auto) 12.8 TH/MM3 Lymphocytes # (Auto) 0.5 TH/MM3 Monocytes # (Auto) 0.4 TH/MM3 Eosinophils # (Auto) 0.0 TH/MM3 Basophils # (Auto) 0.1 TH/MM3 CBC Comment DIFF FINAL Differential Comment Blood Urea Nitrogen 16 MG/DL Creatinine 1.09 MG/DL Random Glucose 262 MG/DL Total Protein 7.3 GM/DL Albumin 3.2 GM/DL Calcium Level 8.2 MG/DL Alkaline Phosphatase 55 U/L Aspartate Amino Transf (AST/SGOT) 32 U/L Alanine Aminotransferase (ALT/SGPT) 21 U/L Total Bilirubin 0.4 MG/DL Sodium Level 139 MEQ/L Potassium Level 4.1 MEQ/L Chloride Level 104 MEQ/L Carbon Dioxide Level 28.6 MEQ/L Anion Gap 6 MEQ/L Estimat Glomerular Filtration Rate 70 ML/MIN Lactic Acid Level 1.4 mmol/L Troponin I 0.57 NG/ML 0.74 NG/ML Prothrombin Time 12.6 SEC Prothromb Time International Ratio 1.2 RATIO Activated Partial Thromboplast Time GREATER THAN 277.5 SEC 29.0 SEC Phosphorus Level 3.6 MG/DL Test 07/06/17 15:00 07/06/17 21:44 07/07/17 03:48 07/07/17 15:30 Urine Opiates Screen NEG Urine Barbiturates Screen NEG Urine Amphetamines Screen NEG Urine Benzodiazepines Screen POS Urine Cocaine Screen NEG Urine Cannabinoids Screen POS Activated Partial Thromboplast Time 30.3 SEC 31.8 SEC 30.9 SEC White Blood Count 14.5 TH/MM3 Red Blood Count 4.23 MIL/MM3 Hemoglobin 12.5 GM/DL Hematocrit 37.2 % Mean Corpuscular Volume 88.1 FL Mean Corpuscular Hemoglobin 29.5 PG Mean Corpuscular Hemoglobin Concent 33.4 % Red Cell Distribution Width 14.8 % Platelet Count 185 TH/MM3 Mean Platelet Volume 10.6 FL Neutrophils (%) (Auto) 89.5 % Lymphocytes (%) (Auto) 5.8 % Monocytes (%) (Auto) 4.1 % Eosinophils (%) (Auto) 0.0 % Basophils (%) (Auto) 0.6 % Neutrophils # (Auto) 12.9 TH/MM3 Lymphocytes # (Auto) 0.8 TH/MM3 Monocytes # (Auto) 0.6 TH/MM3 Eosinophils # (Auto) 0.0 TH/MM3 Basophils # (Auto) 0.1 TH/MM3 CBC Comment DIFF FINAL Differential Comment Prothrombin Time 11.7 SEC Prothromb Time International Ratio 1.2 RATIO Blood Urea Nitrogen 18 MG/DL Creatinine 1.08 MG/DL Random Glucose 251 MG/DL Total Protein 6.4 GM/DL Albumin 2.8 GM/DL Calcium Level 7.7 MG/DL Phosphorus Level 3.2 MG/DL Magnesium Level 1.6 MG/DL Alkaline Phosphatase 43 U/L Aspartate Amino Transf (AST/SGOT) 15 U/L Alanine Aminotransferase (ALT/SGPT) 13 U/L Total Bilirubin 0.3 MG/DL Sodium Level 140 MEQ/L Potassium Level 4.7 MEQ/L Chloride Level 102 MEQ/L Carbon Dioxide Level 29.3 MEQ/L Anion Gap 9 MEQ/L Estimat Glomerular Filtration Rate 71 ML/MIN Lactic Acid Level 1.2 mmol/L Test 07/07/17 22:30 07/08/17 03:19 Activated Partial Thromboplast Time 34.1 SEC 33.1 SEC White Blood Count 14.2 TH/MM3 Red Blood Count 4.78 MIL/MM3 Hemoglobin 14.1 GM/DL Hematocrit 42.7 % Mean Corpuscular Volume 89.3 FL Mean Corpuscular Hemoglobin 29.5 PG Mean Corpuscular Hemoglobin Concent 33.0 % Red Cell Distribution Width 15.3 % Platelet Count 227 TH/MM3 Mean Platelet Volume 10.7 FL Neutrophils (%) (Auto) 76.6 % Lymphocytes (%) (Auto) 15.0 % Monocytes (%) (Auto) 7.5 % Eosinophils (%) (Auto) 0.6 % Basophils (%) (Auto) 0.3 % Neutrophils # (Auto) 10.8 TH/MM3 Lymphocytes # (Auto) 2.1 TH/MM3 Monocytes # (Auto) 1.1 TH/MM3 Eosinophils # (Auto) 0.1 TH/MM3 Basophils # (Auto) 0.0 TH/MM3 CBC Comment DIFF FINAL Differential Comment Blood Urea Nitrogen 18 MG/DL Creatinine 1.11 MG/DL Random Glucose 87 MG/DL Total Protein 7.7 GM/DL Albumin 3.4 GM/DL Calcium Level 8.1 MG/DL Phosphorus Level 3.1 MG/DL Magnesium Level 1.8 MG/DL Alkaline Phosphatase 47 U/L Aspartate Amino Transf (AST/SGOT) 20 U/L Alanine Aminotransferase (ALT/SGPT) 16 U/L Total Bilirubin 0.5 MG/DL Sodium Level 138 MEQ/L Potassium Level 4.3 MEQ/L Chloride Level 101 MEQ/L Carbon Dioxide Level 32.6 MEQ/L Anion Gap 4 MEQ/L Estimat Glomerular Filtration Rate 69 ML/MIN Free Thyroxine 1.06 NG/DL Thyroid Stimulating Hormone 3rd Gen 5.130 uIU/ML Imaging Last Impressions Chest X-Ray 07/07/17 0000 Signed Impressions: Service Date/Time: June 04:02 - CONCLUSION: Left basilar airspace disease. Jai Rosales MD CT Angiography 07/05/17 0000 Signed Impressions: Service Date/Time: Wednesday, July 05, 2017 23:15 - CONCLUSION: 1. No evidence for pulmonary embolism. 2. Bilateral pulmonary consolidation and effusions with adenopathy. 3. Diverticulosis. 4. Left renal cyst. Jai Rosales MD Objective Remarks GENERAL: AWAKE AND ALERT ORIENTED X3 NOT VERY COOPERATIVE- PULLED HIS IV OUT EARLIER SKIN: Warm and dry. HEAD: Atraumatic. Normocephalic. EYES: Pupils equal and round. No scleral icterus. No injection or drainage. EOMI ENT: No nasal bleeding or discharge. Mucous membranes pink and moist. TONGUE MIDLINE NECK: Trachea midline. No JVD. CARDIOVASCULAR: Regular rate and rhythm. S1, S2 NO S3 OR S4 RESPIRATORY: No accessory muscle use. Clear to auscultation. Breath sounds equal bilaterally. GASTROINTESTINAL: Abdomen soft, non-tender, nondistended. Hepatic and splenic margins not palpable. OBESE MUSCULOSKELETAL: Extremities without clubbing, cyanosis, or edema. No obvious deformities. NEUROLOGICAL: Awake and alert. No obvious cranial nerve deficits. Motor grossly within normal limits. Five out of 5 muscle strength in the arms and legs. Normal speech. PSYCHIATRIC: INAppropriate mood and affect; insight and judgment ABnormal. Procedures MARILYNN LILLY M.D. DATE 07/08/2017 PROCEDURE PERFORMED 1. Left heart catheterization. 2. Left ventriculography. 3. Coronary angiography. 4. Bypass graft angiography. 5. Supravalvular aortography. 6. Left internal mammary arteriography. 7. Left radial arterial access approach. DESCRIPTION OF PROCEDURE The patient was brought to the cardiac analytical lab analyst in a fasting state. The patient was prepped and draped in a sterile fashion. Using 1% lidocaine for local anesthesia and using ultrasound guidance I was able to insert a Terumo Slender sheath in the left radial artery. Multiple sticks were required but this was accomplished without complication. A standard cocktail was given of heparin, Verapamil and nitroglycerin. A left 4 Francine was then used to image the left coronary artery. A right Francine was then used to image the right coronary artery. The right Francine was used to obtain an left ventriculogram and a pullback. The right Francine was also used to image the vein graft stumps. An ROBERT catheter was then used to image the left internal mammary bypass. The Slender sheath was then removed with a Terumo band placed. There were no complications. FINDINGS HEMODYNAMICS Left ventricular pressure was 103/21 with an end-diastolic pressure of 28. Aortic pressure was 99/71 with a mean of 86. There was no gradient during pullback from the left ventricle to the aorta. LEFT VENTRICULOGRAPHY Left ventriculography shows an ejection fraction of about 30%. CORONARY ANGIOGRAPHY The left main coronary artery appears normal. It bifurcates into the LAD and circumflex vessels. The LAD has 50% ostial disease and is totally occluded after the first septal linen room houseperson branch. The circumflex artery is totally occluded after a very tiny marginal branch before the major circumflex marginal branch. The right coronary is probably dominant. The vessel is totally occluded proximally. The septal collateral from the LAD provides some collateral flow to the right coronary artery and the filling of the LAD for the left internal mammary bypass also collateralizes a portion of the right coronary artery. SUPRAVALVULAR AORTOGRAM No grafts were seen off the aorta. BYPASS GRAFT ANGIOGRAPHY Two markers and two stumps were identified on the aorta. The left internal mammary artery bypass graft is widely patent to the distal LAD. There is retrograde flow to multiple septals and a small diagonal. Antegrade flow is notable for the fact that the distal LAD is only a 1 mm thready vessel and wraps around the LV apex and is severely and diffusely diseased. CONCLUSIONS 1. Elevated left ventricular end-diastolic pressure. 2. Severely impaired LV function. 3. Severe three-vessel coronary artery disease. 4. Only one patent graft which is to the LAD and the LAD is diffusely and severely diseased, not amenable to intervention or bypass. RECOMMENDATIONS Since the patient presented with aborted sudden cardiac from ventricular fibrillation he qualifies to have a defibrillator. Will try to have that done this admission. Medications and IVs Current Medications Propofol 100 ml @ 0 mls/hr TITRATE PRN IV SEDATION Last administered on 01:13; Start 07/05/17 at 21:30; Stop 07/06/17 at 01:48; Status DC Etomidate (Amidate Inj) 30 mg ONCE ONCE IV PUSH Last administered on 21:40; Start 07/05/17 at 21:30; Stop 07/05/17 at 21:31; Status DC Rocuronium [place] (Zemuron Inj) 50 mg BOLUS ONCE IV Last administered on 07/05 21:40; Start 07/05/17 at 21:30; Stop 07/05/17 at 21:31; Status DC Furosemide (Lasix Inj) 40 mg ONCE ONCE IVP Last administered on 07/05/17 22: 39; Start 07/05/17 at 22:30; Stop 07/05/17 at 22:31; Status DC Methylprednisolone Sodium Succinate (SoluMEDROL INJ) 125 mg ONCE ONCE IV PUSH Last administered on 07/05/17 22:39; Start 07/05/17 at 22:30; Stop 07/05/17 at 22:31; Status DC Albuterol/ Ipratropium (Duoneb Neb) 1 ampule Q15M INH Last administered on 07/05 22:33; Start 07/05/17 at 22:30; Stop 07/05/17 at 23:01; Status DC Nitroglycerin (Nitroglycerin 2% Oint) 1 inch ONCE ONCE TOPICAL Last administered on 07/05/17 22:40; Start 07/05/17 at 22:30; Stop 07/05/17 at 22:31 ; Status DC Vancomycin HCl 1600 mg/Sodium Chloride 516 ml @ 250 mls/hr ONCE ONCE IV Last administered on 07/05/17 23:27; Start 07/05/17 at 22:30; Stop 07/06/17 at 00:33 ; Status DC Piperacillin Sod/ Tazobactam Sod 50 ml @ 100 mls/hr ONCE ONCE IV Last administered on 07/05/17 22:39; Start 07/05/17 at 22:30; Stop 07/05/17 at 22:59 ; Status DC Iohexol (Omnipaque 350 Inj) 75 ml STK-MED ONCE IVCONTRAST Last administered on 07/05/17at 23:38; Start 07/05/17 at 23:38; Stop 07/05/17 at 23:39; Status DC Sodium Chloride 1,000 ml @ 84 mls/hr [id number] IV Last administered on at 13:06; Start 07/06/17 at 01:11; Stop 07/07/17 at 09:47; Status DC Sodium Chloride (NS Flush) 2 ml UNSCH PRN IV FLUSH FLUSH AFTER USING IV ACCESS ; Start 07/06/17 at 01:15 Sodium Chloride (NS Flush) 2 ml BID IV FLUSH Last administered on 07/07/17at 19: 40; Start 07/06/17 at 09:00 Acetaminophen (Tylenol) 650 mg Q6H PRN PO PAIN 1-3 AND/OR FEVER >101F; Start at 01:15 Morphine Sulfate (Morphine Inj) 2 mg Q2H PRN IV PUSH PAIN SCALE 6 TO 10 Last administered on 07/08/17at 04:39; Start 07/06/17 at 01:15 Famotidine (Pepcid Inj) 20 mg Q12HR IV PUSH Last administered on 07/07/17at 19: 39; Start 07/06/17 at 09:00 Midazolam HCl (Versed Inj) 2 mg Q1H PRN IV PUSH SEDATION; Start 07/06/17 at 01: 15; Stop 07/07/17 at 10:30; Status DC Artificial Tears (Tears Naturale Opth Soln) 1 drop TID EACH EYE Last administered on 07/06/17at 18:00; Start 07/06/17 at 09:00 Ondansetron HCl (Zofran Inj) 4 mg Q6H PRN IV PUSH NAUSEA OR VOMITING Last administered on 07/08/17at 06:23; Start 07/06/17 at 01:15 Albuterol/ Ipratropium (Duoneb Neb) 1 ampule Q6HR NEB INH Last administered on 07/08/17at 03:52; Start 07/06/17 at 04:00 Albuterol/ Ipratropium (Duoneb Neb) 1 ampule Q2HR NEB PRN INH WHEEZING; Start 07/06/17 at 01:15 Heparin Sodium (Porcine) (Heparin Inj) 5,000 units Q8H SQ ; Start 07/06/17 at 06 :00; Stop 07/06/17 at 06:00; Status DC Miscellaneous Information 1 [id number] Last administered on 07/06/17at 01:15; Start 07/06/17 at 01:15 Chlorhexidine Gluconate (Chlorhexidine 2% Cloth) 3 pack Taper DAILY@04 TOP Last administered on 07/08/17at 04:00; Start 07/06/17 at 04:00; Stop 07/02/18 at 03:59 Chlorhexidine Gluconate (Chlorhexidine 2% Cloth) 3 pack UNSCH PRN TOP HYGIENIC CARE; Start 07/06/17 at 01:15 Senna/Docusate Sodium (Tiffany-Colace) 1 tab BID PO Last administered on at 09:51; Start 07/06/17 at 09:00 Magnesium Hydroxide (Milk Of Magnesia Liq) 30 ml Q12H PRN PO Mild constipation ; Start 07/06/17 at 01:15 Sennosides (Senokot) 17.2 mg Q12H PRN PO Moderate constipation; Start 07/06/17 at 01:15 Bisacodyl (Dulcolax Supp) 10 mg DAILY PRN RECTAL SEVERE CONSITIPATION; Start at 01:15 Lactulose (Lactulose Liq) 30 ml DAILY PRN PO SEVERE CONSITIPATION; Start at 01:15 Chlorhexidine Gluconate (Peridex 0.12% Liq) 15 ml BID@08,20 MT Last administered on 07/06/17at 08:00; Start 07/06/17 at 08:00 Propofol 100 ml @ 2.799 mls/ hr TITRATE PRN IV SEDATION Last administered on at 08:10; Start 07/06/17 at 01:15; Stop 07/06/17 at 20:53; Status DC Piperacillin Sod/ Tazobactam Sod 100 ml @ 200 mls/hr Q6H IV Last administered on 07/08/17at 04:41; Start 07/06/17 at 05:00 Azithromycin 500 mg/Sodium Chloride 250 ml @ 250 mls/hr Q24H IV Last administered on 07/07/17at 04:09; Start 07/06/17 at 01:15; Stop 07/07/17 at 10:41 ; Status DC Pharmacy Profile Note 0 ml @ 0 mls/hr UNSCH OTHER ; Start 07/06/17 at 01:15; Status Cancel Methylprednisolone Sodium Succinate (SoluMEDROL INJ) 40 mg Q12H IV PUSH Last administered on 07/07/17at 09:54; Start 07/06/17 at 10:00; Stop 07/07/17 at 10:30 ; Status DC Dextrose (D50w (Vial) Inj) 50 ml UNSCH PRN IV PUSH HYPOGLYCEMIA-SEE COMMENTS; Start 07/06/17 at 01:30 Glucagon (Glucagon Inj) 1 mg UNSCH PRN OTHER HYPOGLYCEMIA-SEE COMMENTS; Start 07/06/17 at 01:30 Insulin Aspart (NovoLOG SUPPLEMENTAL SCALE) 1 ACHS SLIDING SCALE SQ Last administered on 07/07/17at 20:46; Start 07/06/17 at 08:00 Heparin Sodium (Porcine) (Heparin Inj) 5,000 units ONCE ONCE IV PUSH Last administered on 07/06/17at 05:23; Start 07/06/17 at 05:00; Stop 07/06/17 at 05:13 ; Status DC Heparin Sodium (Porcine) (Heparin Inj) 5,000 units UNSCH PRN IV PUSH APTT LESS THAN 25; Start 07/06/17 at 11:00; Stop 07/08/17 at 10:05; Status DC Heparin Sodium (Porcine) (Heparin Inj) 2,500 units UNSCH PRN IV PUSH APTT 25 TO 39 Last administered on 07/07/17at 17:17; Start 07/06/17 at 11:00; Stop at 10:05; Status DC Heparin Sodium/ Dextrose 250 ml @ 10 mls/hr TITRATE PRN IV Coagulation Management Last administered on 07/07/17at 17:17; Start 07/06/17 at 05:00; Stop 07/08/17 at 10:05; Status DC Alprazolam (Xanax) 1 mg Q8H PRN PO ANXIETY Last administered on 07/07/17at 21:19 ; Start 07/06/17 at 05:00 Amitriptyline HCl (Elavil) 10 mg HS PO Last administered on 07/06/17at 20:11; Start 07/06/17 at 21:00; Stop 07/07/17 at 10:30; Status DC Aspirin (Aspirin Chew) 81 mg DAILY CHEW Last administered on 07/07/17 09:55; Start 07/06/17 at 09:00 Divalproex Sodium (Depakote Dr) 500 mg BID PO Last administered on 07/07/17 19 :39; Start 07/06/17 at 09:00 Fenofibrate (Tricor) 145 mg DAILY PO Last administered on 07/07/17 09:55; Start 07/06/17 at 09:00 Isosorbide Mononitrate (Imdur) 60 mg DAILY PO Last administered on 07/07/17 09 :51; Start 07/06/17 at 09:00 Lisinopril (Prinivil) 20 mg DAILY PO Last administered on 07/07/17 09:52; Start 07/06/17 at 09:00 Metoprolol Tartrate (Lopressor) 50 mg BID PO Last administered on 07/07/17 19: 40; Start 07/06/17 at 09:00 Sertraline HCl (Zoloft) 100 mg DAILY PO Last administered on 07/07/17 09:55; Start 07/06/17 at 09:00 Risperidone (risperDAL) 2 mg BID PO Last administered on 07/06/17at 20:10; Start 07/06/17 at 09:00; Stop 07/06/17 at 20:53; Status DC Atorvastatin Calcium (Lipitor) 40 mg DAILY PO Last administered on 07/07/17 09 :53; Start 07/06/17 at 09:00 Potassium Chloride 100 ml @ 50 mls/hr Q2H PRN IV For Potassium 2.8 - 3.2 mEq/L ; Start 07/06/17 at 05:15 Potassium Chloride 100 ml @ 50 mls/hr Q2H PRN IV For Potassium 2.8 - 3.2 mEq/L ; Start 07/06/17 at 05:15 Potassium Bicarb/ Potassium Chloride (K-Lyte Cl Eff) 50 meq UNSCH PRN PO For Potassium 3.3 - 3.5 mEq/L; Start 07/06/17 at 05:15 Potassium Chloride 100 ml @ 25 mls/hr UNSCH PRN IV For Potassium 3.3 - 3.5 mEq /L; Start 07/06/17 at 05:15 Potassium Chloride 100 ml @ 50 mls/hr Q2H PRN IV For Potassium 3.3 - 3.5 mEq/L ; Start 07/06/17 at 05:15 Magnesium Sulfate 4 gm/Sodium Chloride 100 ml @ 50 mls/hr UNSCH PRN IV For Magnesium 0.9 - 1.1 mg/dL; Start 07/06/17 at 05:15 Magnesium Oxide (Mag-Ox) 800 mg UNSCH PRN PO For Magnesium 1.2 - 1.6 mg/dL; Start 07/06/17 at 05:15 Magnesium Sulfate 2 gm/Sodium Chloride 100 ml @ 50 mls/hr UNSCH PRN IV For Magnesium 1.2 - 1.6 mg/dL; Start 07/06/17 at 05:15 Potassium Phosphate (K-Phos) 2,000 mg Q4H PRN PO For Phosphorus < 2.5 mg/dL; Start 07/06/17 at 05:15 Sodium Phosphate 30 mmol/Sodium Chloride 250 ml @ 42 mls/hr UNSCH PRN IV For Phosphorus < 2.5 mg/dL; Start 07/06/17 at 05:15 Potassium Phosphate (K-Phos) 2,000 mg UNSCH PRN PO/TUBE SEE LABEL COMMENTS; Start 07/06/17 at 05:15 Potassium Phosphate 30 mmol/ Sodium Chloride 260 ml @ 42 mls/hr UNSCH PRN IV SEE LABEL COMMENTS; Start 07/06/17 at 05:15 Ticagrelor (Brilinta) 180 mg ONCE ONCE PO Last administered on 07/06/17at 11:30 ; Start 07/06/17 at 06:45; Stop 07/06/17 at 06:49; Status DC Ticagrelor (Brilinta) 90 mg BID PO Last administered on 07/07/17at 19:38; Start 07/06/17 at 21:00 Vancomycin HCl 1750 mg/Sodium Chloride 517.5 ml @ 250 mls/hr Q12H IV Last administered on 07/06/17at 22:53; Start 07/06/17 at 11:00; Stop 07/07/17 at 10:30 ; Status DC Miscellaneous Information SPECIFIC LAB TO BE DRAWN:VANCOMYCIN TROUGH DATE TO... ONCE ONCE .XX ; Start 07/07/17 at 10:45; Stop 07/07/17 at 10:46; Status DC Labetalol HCl (Trandate Inj) 20 mg Q3H PRN IV PUSH SYS BP GREATER THAN 170 MMHG ; Start 07/06/17 at 09:30 Furosemide (Lasix Inj) 40 mg ONCE ONCE IV PUSH Last administered on 07/06/17at 10:00; Start 07/06/17 at 10:00; Stop 07/06/17 at 10:05; Status DC Potassium Bicarb/ Potassium Chloride (K-Lyte Cl Eff) 25 meq ONCE ONCE PO Last administered on 07/06/17at 11:30; Start 07/06/17 at 10:00; Stop 07/06/17 at 10:05; Status DC Furosemide (Lasix Inj) 40 mg BID@,18 IV PUSH Last administered on 07/07/17 09:54; Start 07/06/17 at 18:00; Stop 07/07/17 at 10:30; Status DC Potassium Chloride (KCl) 20 meq QID PO Last administered on 07/07/17at 19:40; Start 07/06/17 at 13:00 Nitroglycerin (Nitroglycerin 2% Oint) 1 inch Q6HR TOPICAL Last administered on 07/08/17 06:23; Start 07/06/17 at 12:00 Epinephrine HCl (EPINEPHrine (1:10,000) INJ) 1 mg STK-MED ONCE .ROUTE ; Start at 18:23; Stop 07/06/17 at 18:24; Status DC Oxycodone/ Acetaminophen (Percocet 10-325 Mg) 1 tab Q6H PRN PO PAIN SCALE 4-10 Last administered on 07/08/17at 01:53; Start 07/06/17 at 18:30 Risperidone (risperDAL) 1 mg HS PO Last administered on 07/07/17 19:39; Start 07/06/17 at 21:00 Quetiapine Fumarate (SEROquel) 100 mg HS PRN PO SLEEP Last administered on 07/06at 22:40; Start 07/06/17 at 21:00; Stop 07/07/17 at 10:30; Status DC Sodium Chloride 1,000 ml @ 30 mls/hr Q24H IV Last administered on 07/07/17at 10 :30; Start 07/07/17 at 09:32; Stop 07/12/17 at 09:31 Diazepam (Valium) 5 mg DENTURE LABORATORY TECHNICIAN PO ; Start 07/07/17 at 09:45; Stop 07/11/17 at 09:44 Diphenhydramine HCl (Benadryl Inj) 25 mg DENTURE LABORATORY TECHNICIAN IV PUSH ; Start 07/07/17 at 09 :45; Stop 07/11/17 at 09:44 Clonidine (Catapres) 0.1 mg BID PO Last administered on 07/07/17at 19:38; Start 07/07/17 at 10:30 Furosemide (Lasix) 20 mg BID@09,18 PO Last administered on 07/07/17at 17:11; Start 07/07/17 at 18:00 Prednisone (Deltasone) 20 mg DAILY PO ; Start 07/08/17 at 09:00 Potassium Bicarb/ Potassium Chloride (K-Lyte Cl Eff) 25 meq DAILY NG ; Start at 09:00 Heparin Sodium/ Sodium Chloride 2,000 ml @ As Directed STK-MED ONCE IV FLUSH ; Start 07/08/17 at 07:23; Stop 07/08/17 at 07:24; Status DC Verapamil HCl (Isoptin Inj) 5 mg STK-MED ONCE .ROUTE ; Start 07/08/17 at 07:26; Stop 07/08/17 at 07:27; Status DC Heparin Sodium (Porcine) (Heparin Inj) 10,000 units STK-MED ONCE .ROUTE ; Start 07/08/17 at 07:26; Stop 07/08/17 at 07:27; Status DC Midazolam HCl (Versed Inj) 2 mg STK-MED ONCE .ROUTE ; Start 07/08/17 at 07:37; Stop 07/08/17 at 07:38; Status DC Fentanyl Citrate (fentaNYL INJ) 100 mcg STK-MED ONCE .ROUTE ; Start 07/08/17 at 07:38; Stop 07/08/17 at 07:39; Status DC Morphine Sulfate (Morphine Inj) 10 mg STK-MED ONCE .ROUTE ; Start 07/08/17 at 08 :00; Stop 07/08/17 at 08:01; Status DC Miscellaneous Information 1 ONCE ONCE XX ; Start 07/08/17 at 09:15; Stop at 10:06; Status DC Sodium Chloride 1,000 ml @ 125 mls/hr Q8H IV ; Start 07/08/17 at 10:38 Cefazolin Sodium 1000 mg/Sodium Chloride 250 ml @ 0 mls/hr ONCE IV ; Start 07/08 at 13:30; Stop 07/09/17 at 13:29 Vancomycin HCl 1000 mg/Sodium Chloride 250 ml @ 0 mls/hr ONCE IV ; Start at 13:30; Stop 07/09/17 at 13:29 Povidone Iodine (Betadine 5% Antisepsis Kit) 1 applic ONCE TOPICAL ; Start 07/08 at 10:45; Status UNV Mupirocin (Bactroban Nasal 2% Oint) 1 applic ONCE EACH NARE ; Start 07/08/17 at 10:45; Status UNV Chlorhexidine Gluconate (Chlorhexidine 2% Cloth) 1 pack ONCE TOPICAL ; Start at 10:45; Status UNV A/P Assessment and Plan LEUKOCYTOSIS - SLOW IMPROVEMENT Respiratory failure - Status post V. fib arrest - Intubated for airway protection, extubated 07/06/17 - CTA negative for PE - Bilateral infiltrates, on IV lasix. change to PO - Covered with broad-spectrum antibiotics-Vanc DCd - Follow-up cultures - DuoNeb scheduled and when necessary V. fib arrest - Off sedation following commands not a candidate for hypothermia - Per family report EF 25%. 2 D Echo 07/06 EF the left ventricular systolic function is moderately reduced EF 35%. The basal inferior wall is hypokinetic, posterior wall is at least moderately hypokinetic. [place] is mildly hypokinetic. - Plan for cardiac catheterization and AICD placement 07-[address] Lilly - Heparin drip, aspirin metoprolol lisinopril and statins - Restart clonidine - Change Lasix to PO Seizure disorder - Depakote Diabetes mellitus - Insulin sliding scale Depressions - DC Amitriptyline due to V. tach -Continue sertraline, risperidone DVT GI prophylaxis - Teds SCDs - Heparin drip - Pepcid WILL NEED AICD DUE TO VTACH- HOPEFULLY TO BE PLACE ON 07-08 HYPOTHYROIDISM START SYNTHROID 25MCG PO DAILY Discharge Planning PENDING CARDIAC CLEARANCE AND IMPROVEMENT Harjeet Willett DO Jul 08, 2017 11:12
[2017-07-08] MEDS ORDERED: METOPROLOL TARTRATE 25 MG TAB PO PRN (11:15)
[2017-07-08] MEDS ORDERED: NS 1000 ML IV SCH (11:15)
[2017-07-08] MEDS ORDERED: POVIDONE IODINE 5% (ANTISEPSIS KIT) 4 APPLICATIONS EACH NARE PRN (11:15)
[2017-07-08] MEDS ORDERED: LACTATED RINGER'S 1000 ML IV PRN (11:15)
[2017-07-08] MEDS ORDERED: POVIDONE IODINE 5% (ANTISEPSIS KIT) 4 APPLICATIONS EACH NARE SCH (11:15)
[2017-07-08] MEDS ORDERED: CHLORHEXIDINE GLUCONATE 2 % 1 PACK (2 CLOTHS) TOPICAL PRN (11:15)
[2017-07-08] MEDS ORDERED: MUPIROCIN 2% OINT 1 APPLIC/GM SYR NASAL SCH (11:15)
[2017-07-08] MEDS ORDERED: LEVOTHYROXINE SODIUM 25 MCG TAB PO ONE (11:15)
[2017-07-08] MEDS ORDERED: SODIUM CHLORID 0.9% 500 ML IV PRN (11:15)
[2017-07-08] MEDS: ISOSORBIDE MONONITRATE 60 MG CR TAB (IMDUR) PO SCH (12:13)
[2017-07-08] MEDS: LISINOPRIL 20 MG TAB PO SCH (12:13)
[2017-07-08] MEDS: FENOFIBRATE 145 MG TAB PO SCH (12:13)
[2017-07-08] MEDS: SERTRALINE HCL 100 MG TAB PO SCH (12:14)
[2017-07-08] MEDS: FUROSEMIDE 20 MG TAB PO SCH (12:14)
[2017-07-08] MEDS: ATORVASTATIN 40 MG TAB PO SCH (12:14)
[2017-07-08] MEDS: METOPROLOL TARTRATE 50 MG TAB PO SCH (12:14)
[2017-07-08] MEDS: ASPIRIN 81 MG CHEW TAB CHEW SCH (12:15)
[2017-07-08] MEDS: POTASSIUM CHLORIDE 20 MEQ CONTROLLED RELEASE TAB PO SCH ×2 (12:15→16:17)
[2017-07-08] MEDS: TICAGRELOR 90 MG TAB PO SCH (12:15)
[2017-07-08] MEDS: cloNIDine HCL 0.1 MG TAB PO SCH (12:15)
[2017-07-08] MEDS ORDERED: VANCOMYCIN 1000 MG/NS 250 ML IV SCH ×2 (12:30)
[2017-07-08] MEDS ORDERED: ceFAZolin 2 GM PREMIX 50 ML IV SCH (12:30)
--- NOTE | 2017-07-08 12:32 | MB ---
cc: JOSELIN FLETCHER M.D. DATE OF CONSULTATION: 07/08/2017. REASON FOR CONSULTATION: Upgrade of the patient's pacemaker to an implantable defibrillator. HISTORY OF PRESENT ILLNESS: The patient is a 56-year-old white male with a history of coronary artery disease status post bypass surgery 2004, pacemaker implant 2004, diabetes, hypertension, hyperlipidemia who was brought into the hospital earlier this week status post ventricular fibrillation arrest. The patient underwent cardiac catheterization today showing severe three-vessel coronary disease with only one remaining patent bypass graft, a left internal mammary artery to the LAD. Ejection fraction has been found to be reduced to 35% by echo. The patient denies recent angina, palpitations, pedal edema, paroxysmal nocturnal dyspnea. He reports no definite change in chronic mild to moderate dyspnea on exertion. PAST MEDICAL HISTORY: 1. Coronary artery disease status post four-vessel bypass surgery 2004. 2. History of [employer] pacemaker implant 2004. 3. Diabetes 4. Hypertension 5. Hyperlipidemia. 6. History of renal lithiasis CURRENT CARDIAC MEDICATIONS: 1. Furosemide 20 milligrams p.o. twice a day. 2. Clonidine 0.1 milligrams p.o. twice a day. 3. Brilinta 90 milligrams p.o. twice a day. 4. Potassium chloride 20 milliequivalents one p.o. four times a day. 5. Nitro Paste one inch q. 6 hours. 6. Aspirin 81 milligrams p.o. daily. 7. Tricor 145 milligrams p.o. daily. 8. Imdur 60 milligrams p.o. daily. 9. Metoprolol tartrate 50 milligrams p.o. twice a day. 10. Lisinopril 20 milligrams p.o. daily. 11. Atorvastatin 40 milligrams p.o. at bedtime. ALLERGIES: NO KNOWN DRUG ALLERGIES. FAMILY HISTORY: Noncontributory. SOCIAL HISTORY: The patient is a life-long smoker. He also smokes occasional marijuana. There is no history of alcohol abuse. REVIEW OF SYSTEMS: Review of systems as in the history of present illness otherwise negative or noncontributory. He also denies headache, abdominal pain, melena, dyspepsia, bright red blood per rectum, fevers, flu-like symptoms. PHYSICAL EXAMINATION: VITAL SIGNS: On physical examination, his blood pressure 144/92 with a pulse of 80, respirations 20. GENERAL: In general, he is a well-developed, well-nourished white male in no acute distress. HEAD, EYES, EARS, NOSE, THROAT: On HEENT examination, jugular venous pressure is normal. Carotid pulses are 2+ bilaterally and without bruits. CHEST: Examination of the chest reveals clear lung [place]. CARDIAC: On cardiac examination, he has a regular rate and rhythm without S3, S4 or murmur. ABDOMEN: On abdominal examination, he has a soft, nontender abdomen. Bowel sounds are present. There is no definite hepatosplenomegaly. EXTREMITIES: No cyanosis, clubbing or edema. EKG shows sinus rhythm, nonspecific intraventricular conduction delay, occasional PVC, lateral S-T and T-wave abnormalities, consider ischemia. Laboratory data includes WBC 14.2, hemoglobin 14.1, platelets 227, potassium 4.3, BUN 18, creatinine 1.11. Chest x-ray shows left basilar airspace disease. IMPRESSION: 56-year-old white male with a history of coronary artery disease status post bypass surgery 2004, history of pacemaker implant 2004, diabetes, hypertension, hyperlipidemia admitted earlier this week status post ventricular fibrillation arrest. I have been asked to see the patient for upgrade of his pacemaker to an AICD device. The patient's ejection fraction by left ventriculography is 30%, and 35% by echo. He is also status post aborted sudden cardiac event. At this point, I would agree with the need for an implantable defibrillator. He has no active congestive heart failure. He is [place] Heart Association Class II to III. The nature of the procedure and potential risks including but not limited to , cardiac perforation, pneumothorax, bleeding, infection have been outlined to the patient. He agrees to proceed. RECOMMENDATIONS: Proceed with upgrade of his pacemaker to a dual-chamber AICD device today. MD MALISSA Jennings/BENITO /12:01 PM /12:12 PM
[2017-07-08] MEDS ORDERED: ceFAZolin INJ 1,000 MG in SODIUM CHLORIDE 0.9% INJ 250 ML IV SCH (13:30)
[2017-07-08] MEDS ORDERED: VANCOMYCIN INJ 1,000 MG in SODIUM CHLOR 0.9% 250 ML INJ 250 ML IV SCH (13:30)
[2017-07-08 16:27] LABS: HEMOGLOBIN A1C 9.9 % (4.3-6.0)
[2017-07-08] MEDS ORDERED: IOHEXOL 350 MG/ML 100 ML BTL (for Cath Lab) OTHER ONE (17:01)
--- NOTE | 2017-07-09 00:51 | EKG ---
Date Performed: 07/07/2017 Time Performed: 16:15:56 PTAGE: 56 years EKG: Sinus rhythm with PVC(s) Possible inferior infarct - age undetermined Left ventricular hypertrophy Lateral ST-T c hanges Abnormal ECG Since the prior tracing, there has been no significant change DOCTOR: Deena Bran Interpretating Date/Time 07/09/2017 00:49:13
[2017-07-09] MEDS ORDERED: LEVOTHYROXINE SODIUM 25 MCG TAB PO SCH (06:00)
--- NOTE | 2017-07-09 09:19 | PD.AMA ---
Against Medical Advice Note Diagnosis: (1) Noncompliance (2) Systolic CHF, acute (3) Non-STEMI (non-ST elevated myocardial infarction) (4) Ischemic cardiomyopathy (5) Tobacco abuse (6) CAD (coronary artery disease) (7) Ventricular fibrillation Discharge Disposition: Against Medical Advice Pt Condition on Discharge: Guarded Recommended Treatment Course 56-year-old gentleman from [place] with past medical history of coronary artery disease status post stent placement 2 weeks ago, CHF with EF per family 25%, diabetes mellitus, seizure disorder, depressions, diabetes mellitus was brought in by [facility] in agonal breathing. The patient has been feeling short of breath a few hours prior to event. Per chart documentation when the emergency response arrived they found the patient in agonal breathing and then lost pulses. The rhythm was found to be ventricular fibrillation and he was defibrillated once and given 1 dose of epinephrine. Patient had ROSC right away. He was brought to emergency department at [facility], was opening his eyes but in respiratory distress. He was emergently intubated by ED attending for an airway protection. Off sedation he is is able to follow commands and moves all extremities and nods his head to respond. 07/07: Patient extubated yesterday tolerating well breathing comfortably. Hypertensive occasional PVCs noted. Resume home clonidine. Discontinue amitriptyline due to V. tach. Discussed with Dr. Roberto plan is for cardiac catheterization and had an AICD. 2 D Echo EF the left ventricular systolic function is moderately reduced EF 35%. The basal inferior wall is hypokinetic, posterior wall is at least moderately hypokinetic. [place] is mildly hypokinetic. 07-08 had CARDIAC CATH TODAY- TO GO FOR AICD LATER TODAY [facility] RN AND PT SEEN IN DOCU PATIENT THREATENING TO POSSIBLY LEAVE AMA WAS TO HAVE AICD UPGRADED ON 07-08 BUT DECIDED TO LEAVE AMA FOR ANY OTHER ISSUE SEE NURSES NOTES AND THE CHART AMA Statement Patient Sebastián Weiss has decided to leave the hospital against medical advice. This patient has the capacity to refuse care and understands the risks of leaving, including permanent disability and/or , and has had an opportunity to ask questions about his condition. The patient has been informed that he may return for care at any time, and follow up has been arranged/ advised. Harjeet Willett DO Jul 09, 2017 09:19
--- NOTE | 2017-07-11 17:05 | HHI.DS ---
Discharge Summary Admission Date Jul 05, 2017 at 22:22 Discharge Date: Jul 08, 2017 Admitting Diagnosis Post cardiac arrest (1) Noncompliance ICD Code: Z91.19 - Patient's noncompliance with other medical treatment and regimen Diagnosis: Principal (2) Systolic CHF, acute ICD Code: I50.21 - Acute systolic (congestive) heart failure Diagnosis: Secondary (3) Non-STEMI (non-ST elevated myocardial infarction) ICD Code: I21.4 - Non-ST elevation (NSTEMI) myocardial infarction Diagnosis: Principal (4) Ischemic cardiomyopathy ICD Code: I25.5 - Ischemic cardiomyopathy Diagnosis: Principal (5) Tobacco abuse ICD Code: Z72.0 - Tobacco use Diagnosis: Secondary (6) CAD (coronary artery disease) ICD Code: I25.10 - Atherosclerotic heart disease of [place] coronary artery without angina pectoris Diagnosis: Secondary (7) Ventricular fibrillation ICD Code: I49.01 - Ventricular fibrillation Diagnosis: Principal Procedures MARILYNN LILLY M.D. DATE 07/08/2017 PROCEDURE PERFORMED 1. Left heart catheterization. 2. Left ventriculography. 3. Coronary angiography. 4. Bypass graft angiography. 5. Supravalvular aortography. 6. Left internal mammary arteriography. 7. Left radial arterial access approach. DESCRIPTION OF PROCEDURE The patient was brought to the cardiac cardiovascular lab director in a fasting state. The patient was prepped and draped in a sterile fashion. Using 1% lidocaine for local anesthesia and using ultrasound guidance I was able to insert a Terumo Slender sheath in the left radial artery. Multiple sticks were required but this was accomplished without complication. A standard cocktail was given of heparin, Verapamil and nitroglycerin. A left 4 Francine was then used to image the left coronary artery. A right Francine was then used to image the right coronary artery. The right Francine was used to obtain an left ventriculogram and a pullback. The right Francine was also used to image the vein graft stumps. An ROBERT catheter was then used to image the left internal mammary bypass. The Slender sheath was then removed with a Terumo band placed. There were no complications. FINDINGS HEMODYNAMICS Left ventricular pressure was 103/21 with an end-diastolic pressure of 28. Aortic pressure was 99/71 with a mean of 86. There was no gradient during pullback from the left ventricle to the aorta. LEFT VENTRICULOGRAPHY Left ventriculography shows an ejection fraction of about 30%. CORONARY ANGIOGRAPHY The left main coronary artery appears normal. It bifurcates into the LAD and circumflex vessels. The LAD has 50% ostial disease and is totally occluded after the first septal provider education specialist branch. The circumflex artery is totally occluded after a very tiny marginal branch before the major circumflex marginal branch. The right coronary is probably dominant. The vessel is totally occluded proximally. The septal collateral from the LAD provides some collateral flow to the right coronary artery and the filling of the LAD for the left internal mammary bypass also collateralizes a portion of the right coronary artery. SUPRAVALVULAR AORTOGRAM No grafts were seen off the aorta. BYPASS GRAFT ANGIOGRAPHY Two markers and two stumps were identified on the aorta. The left internal mammary artery bypass graft is widely patent to the distal LAD. There is retrograde flow to multiple septals and a small diagonal. Antegrade flow is notable for the fact that the distal LAD is only a 1 mm thready vessel and wraps around the LV apex and is severely and diffusely diseased. CONCLUSIONS 1. Elevated left ventricular end-diastolic pressure. 2. Severely impaired LV function. 3. Severe three-vessel coronary artery disease. 4. Only one patent graft which is to the LAD and the LAD is diffusely and severely diseased, not amenable to intervention or bypass. RECOMMENDATIONS Since the patient presented with aborted sudden cardiac from ventricular fibrillation he qualifies to have a defibrillator. Will try to have that done this admission. Brief History - From Admission 56-year-old gentleman from [place] with past medical history of coronary artery disease status post stent placement 2 weeks ago, CHF with EF per family 25%, diabetes mellitus, seizure disorder, depressions, diabetes mellitus was brought in by [facility] in agonal breathing. The patient has been feeling short of breath a few hours prior to event. Per chart documentation when the emergency response arrived they found the patient in agonal breathing and then lost pulses. The rhythm was found to be ventricular fibrillation and he was defibrillated once and given 1 dose of epinephrine. Patient had ROSC right away. He was brought to emergency department at [facility], was opening his eyes but in respiratory distress. He was emergently intubated by ED attending for an airway protection. Off sedation he is is able to follow commands and moves all extremities and nods his head to respond. CBC/BMP: 07/08/17 0319 07/08/17 0319 PE at Discharge GENERAL: AWAKE AND ALERT ORIENTED X3 NOT VERY COOPERATIVE- PULLED HIS IV OUT EARLIER SKIN: Warm and dry. HEAD: Atraumatic. Normocephalic. EYES: Pupils equal and round. No scleral icterus. No injection or drainage. EOMI ENT: No nasal bleeding or discharge. Mucous membranes pink and moist. TONGUE MIDLINE NECK: Trachea midline. No JVD. CARDIOVASCULAR: Regular rate and rhythm. S1, S2 NO S3 OR S4 RESPIRATORY: No accessory muscle use. Clear to auscultation. Breath sounds equal bilaterally. GASTROINTESTINAL: Abdomen soft, non-tender, nondistended. Hepatic and splenic margins not palpable. OBESE MUSCULOSKELETAL: Extremities without clubbing, cyanosis, or edema. No obvious deformities. NEUROLOGICAL: Awake and alert. No obvious cranial nerve deficits. Motor grossly within normal limits. Five out of 5 muscle strength in the arms and legs. Normal speech. PSYCHIATRIC: INAppropriate mood and affect; insight and judgment ABnormal. Hospital Course 56-year-old gentleman from [place] with past medical history of coronary artery disease status post stent placement 2 weeks ago, CHF with EF per family 25%, diabetes mellitus, seizure disorder, depressions, diabetes mellitus was brought in by [facility] in agonal breathing. The patient has been feeling short of breath a few hours prior to event. Per chart documentation when the emergency response arrived they found the patient in agonal breathing and then lost pulses. The rhythm was found to be ventricular fibrillation and he was defibrillated once and given 1 dose of epinephrine. Patient had ROSC right away. He was brought to emergency department at [facility], was opening his eyes but in respiratory distress. He was emergently intubated by ED attending for an airway protection. Off sedation he is is able to follow commands and moves all extremities and nods his head to respond. 07/07: Patient extubated yesterday tolerating well breathing comfortably. Hypertensive occasional PVCs noted. Resume home clonidine. Discontinue amitriptyline due to V. tach. Discussed with Dr. Lilly plan is for cardiac catheterization and had an AICD. 2 D Echo EF the left ventricular systolic function is moderately reduced EF 35%. The basal inferior wall is hypokinetic, posterior wall is at least moderately hypokinetic. [place] is mildly hypokinetic. 07-08 had CARDIAC CATH TODAY- TO GO FOR AICD LATER TODAY DW RN AND PT SEEN IN DOCU PATIENT THREATENING TO POSSIBLY LEAVE AMA WAS TO HAVE AICD UPGRADED ON 07-08 BUT DECIDED TO LEAVE AMA FOR ANY OTHER ISSUE SEE NURSES NOTES AND THE CHART Pt Condition on Discharge: Guarded Discharge Disposition: Discharge Home (ama) Discharge Time: <= 30 minutes Discharge Instructions DIET: Follow Instructions for: Heart Healthy Diet, Diabetic Diet Speech Therapy-Diet Recommends: Regular Additional Diet Instructions: left ama Fluid Restrictions: left ama Other Activity Instructions: left ama Follow up Referrals: Cardiology - 2-3 Days PCP Follow-up - 2-3 Days Additional Information PATIENT LEFT AMA Harjeet Willett DO Jul 11, 2017 17:05
== END 2017-07-08 17:02 | disposition left against medical advice (07) | DRG 208 ==
LOC: PHED 21:14 → PHEDA 22:22 → HIMN 07-06 00:45 → HCIS 07-08 10:45
PROVIDERS: ADMIT Hospitalist; ATTEND Hospitalist
PROC: 5A1945Z Respiratory Ventilation, 24-96 Consecutive Hours (ICD-10-PCS; principal; 2017-07-05)
PROC: 0BH17EZ Insertion of Endotracheal Airway into Trachea, Via Natural or Artificial Opening (ICD-10-PCS; 2017-07-05)
PROC: 4A023N7 Measurement of Cardiac Sampling and Pressure, Left Heart, Percutaneous Approach (ICD-10-PCS; 2017-07-08)
PROC: B2111ZZ Fluoroscopy of Multiple Coronary Arteries using Low Osmolar Contrast (ICD-10-PCS; 2017-07-08)
PROC: B2151ZZ Fluoroscopy of Left Heart using Low Osmolar Contrast (ICD-10-PCS; 2017-07-08)
PROC: B2181ZZ Fluoroscopy of Left Internal Mammary Bypass Graft using Low Osmolar Contrast (ICD-10-PCS; 2017-07-08)
PROC: B2121ZZ Fluoroscopy of Single Coronary Artery Bypass Graft using Low Osmolar Contrast (ICD-10-PCS; 2017-07-08)
DX: J96.00 Acute respiratory failure, unspecified whether with hypoxia or hypercapnia (principal); I49.01 Ventricular fibrillation; I21.4 Non-ST elevation (NSTEMI) myocardial infarction; I50.21 Acute systolic (congestive) heart failure; E87.2 Acidosis; E11.9 Type 2 diabetes mellitus without complications; D72.829 Elevated white blood cell count, unspecified; I46.2 Cardiac arrest due to underlying cardiac condition; S22.39XA Fracture of one rib, unspecified side, initial encounter for closed fracture; I47.2 Ventricular tachycardia; I11.0 Hypertensive heart disease with heart failure; G40.909 Epilepsy, unspecified, not intractable, without status epilepticus; E78.5 Hyperlipidemia, unspecified; K64.9 Unspecified hemorrhoids; I49.3 Ventricular premature depolarization; E03.9 Hypothyroidism, unspecified; I25.5 Ischemic cardiomyopathy; I25.10 Atherosclerotic heart disease of native coronary artery without angina pectoris; Y84.8 Other medical procedures as the cause of abnormal reaction of the patient, or of later complication, without mention of misadventure at the time of the procedure; F17.210 Nicotine dependence, cigarettes, uncomplicated; Z91.19 Patient's noncompliance with other medical treatment and regimen; Z95.0 Presence of cardiac pacemaker; Z79.84 Long term (current) use of oral hypoglycemic drugs; Z95.5 Presence of coronary angioplasty implant and graft; Z95.1 Presence of aortocoronary bypass graft; Z79.82 Long term (current) use of aspirin
CPT/HCPCS: 31500; 36600; 51702; 71045; 71275; 80048; 80053; 80307; 82805; 82948; 83036; 83605; 83735; 83880; 84100; 84439; 84443; 84484; 85007; 85025; 85027; 85610; 85730; 87040; 87086; 87449; 87641; 93005; 93306; 93459; 93567; 94003; 94640; 94664; 96374; 99152; 99153; C1769; C1893; J0171; J0456; J1644; J1815; J1940; J2250; J2270; J2405; J2543; J2920; J2930; J3010; J3370; J7030; J7040; J7050; J7512; Q9967